=== PATIENT | male | born 1995 | race Hispanic/Latino ===

== ENCOUNTER 2019-01-27 12:58 | Emergency (ER) | payer SELFPAY ==
--- NOTE | 2019-01-27 14:55 | ER ---
Nurse's Notes [facility] Name: Bassam Sharma Age: 23 yrs Sex: Male : 1995 Arrival Date: 01/27/2019 Time: 13:02 Bed 13 Private MD: Diagnosis: Pain in throat Presentation: 01/27 13:30 Presenting complaint: Patient states: Sore throat x 1 year. Transition of care: patient jl7 was not received from another setting of care. Onset of symptoms was 2018. Risk Assessment: Do you want to hurt yourself or someone else? Patient reports no desire to harm self or others. Initial Sepsis Screen: Does the patient meet any 2 criteria? No. Patient's initial sepsis screen is negative. Does the patient have a suspected source of infection? No. Patient's initial sepsis screen is negative. Care prior to arrival: None. 13:30 Method Of Arrival: Ambulatory [facility] 13:30 Acuity: JENNIFER 4 jl7 Triage Assessment: 13:33 General: Appears in no apparent distress. comfortable, Behavior is calm, cooperative, jl7 appropriate for age. Pain: Denies pain. EENT: Throat is clear is pink. Neuro: Level of Consciousness is awake, alert, obeys commands, Oriented to person, place, time, situation. Cardiovascular: Heart tones present Patient's skin is warm and dry. Respiratory: Airway is patent Respiratory effort is even, unlabored, Respiratory pattern is regular, symmetrical, Breath sounds are clear bilaterally. GI: No signs and/or symptoms were reported involving the gastrointestinal system. : No signs and/or symptoms were reported regarding the genitourinary system. Derm: Skin is pink, warm \T\ dry. Musculoskeletal: No signs and/or symptoms reported regarding the musculoskeletal system. 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 - Social history:: Smoking status: Patient uses tobacco products, 3-4 smokes. - Ebola Screening: : No symptoms or risks identified at this time. Screenin:59 Abuse screen: Denies threats or abuse. Denies injuries from another. Nutritional jl7 screening: No deficits noted. Tuberculosis screening: No symptoms or risk factors identified. Fall Risk None identified. Assessment: 13:59 General: See triage assessment. jl7 14:30 Reassessment: Patient appears in no apparent distress at this time. No changes from jl7 previously documented assessment. Patient and/or family updated on plan of care and expected duration. Pain level reassessed. Patient is alert, oriented x 3, equal unlabored respirations, skin warm/dry/pink. 15:01 Reassessment: Patient appears in no apparent distress at this time. Patient and/or ch family updated on plan of care and expected duration. Pain level reassessed. Patient is alert, oriented x 3, equal unlabored respirations, skin warm/dry/pink. Respiratory: No deficits noted. Airway is patent Respiratory effort is even, unlabored. Vital Signs: 13:33 BP 136 / 84; Pulse 66; Resp 16 S; Temp 98(O); Pulse Ox 100% on R/A; Pain 0/10; jl7 14:30 BP 137 / 88; Pulse 59; Resp 16 S; Pulse Ox 100% on R/A; jl7 15:01 BP 144 / 89; Pulse 62; Resp 16; Temp 97.9; Pulse Ox 99% on R/A; Pain 0/10; ch ED Course: 13:02 Patient arrived in ED. rg4 13:13 Sofia Hutchins [facility]-C [facility]. kb 13:13 Unruly Jacob MD is Attending Physician. kb 13:22 Shagufta Nicolas, JENNIFER is Primary Nurse. jl7 13:31 Triage completed. jl7 13:33 Arm band placed on right wrist. jl7 13:59 Patient has correct armband on for positive identification. Bed in low position. Call [facility] light in reach. Side rails up X 1. Pulse ox on. NIBP on. 13:59 Strep swab sent to lab. 7 15:01 No provider procedures requiring assistance completed. Patient did not have IV access ch during this emergency room visit. Administered Medications: No medications were administered Outcome: 14:54 Discharge ordered by . kb 15:01 Discharged to home ambulatory, with family. 15:01 Condition: stable 15:01 Discharge instructions given to patient, family, Instructed on discharge instructions, follow up and referral plans. Demonstrated understanding of instructions, follow-up care. 15:03 Patient left the ED. ch Signatures: Sofia Hutchins, VALERY JARQUIN-Thelma Zelaya, RN RN Trisha Botello4 Shagufta Nicolas RN RN jl7
--- NOTE | 2019-01-27 14:55 | EDPHYS ---
Physician Documentation [facility] Name: Bassam Sharma Age: 23 yrs Sex: Male : 1995 Arrival Date: 01/27/2019 Time: 13:02 Bed 13 Private MD: ED Physician Unruly Jacob HPI: 01/27 14:27 This 23 yrs old Male presents to ER via Ambulatory with complaints of Sore kb Throat. 14:27 The patient presents with sore throat. The patient describes throat pain as constant. kb Onset: The symptoms/episode began/occurred 1 year(s) ago. Severity of symptoms: At their worst the symptoms were mild, moderate, in the emergency department the symptoms are unchanged. Modifying factors: The symptoms are alleviated by nothing, the symptoms are aggravated by swallowing, Patient's oral intake status: good Denies contact with similarly ill indivduals. Associated signs and symptoms: Pertinent positives: Sore throat Pertinent negatives fever. The patient has not experienced similar symptoms in the past. The patient has not recently seen a physician. Pt reports sore throat for a year. When it first started he was tested for strep and it was positive. Completed antibiotics and pain got better, but came back. 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 - Social history:: Smoking status: Patient uses tobacco products, 3-4 smokes. - Ebola Screening: : No symptoms or risks identified at this time. ROS: 14:26 Constitutional: Negative for fever, chills, and weight loss, Neck: Negative for injury, kb pain, and swelling, Cardiovascular: Negative for chest pain, palpitations, and edema, Respiratory: Negative for shortness of breath, cough, wheezing, and pleuritic chest pain, Abdomen/GI: Negative for abdominal pain, nausea, vomiting, diarrhea, and constipation, MS/Extremity: Negative for injury and deformity, Skin: Negative for injury, rash, and discoloration, Neuro: Negative for headache, weakness, numbness, tingling, and seizure. 14:26 ENT: Positive for sore throat. Exam: 14:26 Constitutional: This is a well developed, well nourished patient who is awake, alert, kb and in no acute distress. Head/Face: Normocephalic, atraumatic. Neck: Trachea midline, no thyromegaly or masses palpated, and no cervical lymphadenopathy. Supple, full range of motion without nuchal rigidity, or vertebral point tenderness. No Meningismus. Chest/axilla: Normal chest wall appearance and motion. Nontender with no deformity. No lesions are appreciated. Cardiovascular: Regular rate and rhythm with a normal S1 and S2. No gallops, murmurs, or rubs. Normal PMI, no JVD. No pulse deficits. Respiratory: Lungs have equal breath sounds bilaterally, clear to auscultation and percussion. No rales, rhonchi or wheezes noted. No increased work of breathing, no retractions or nasal flaring. Abdomen/GI: Soft, non-tender, with normal bowel sounds. No distension or tympany. No guarding or rebound. No evidence of tenderness throughout. Skin: Warm, dry with normal turgor. Normal color with no rashes, no lesions, and no evidence of cellulitis. MS/ Extremity: Pulses equal, no cyanosis. Neurovascular intact. Full, normal range of motion. Neuro: Awake and alert, GCS 15, oriented to person, place, time, and situation. Cranial nerves II-XII grossly intact. Motor strength 5/5 in all extremities. Sensory grossly intact. Cerebellar exam normal. Normal gait. 14:26 ENT: Posterior pharynx: erythema, that is moderate. Vital Signs: 13:33 BP 136 / 84; Pulse 66; Resp 16 S; Temp 98(O); Pulse Ox 100% on R/A; Pain 0/10; jl7 14:30 BP 137 / 88; Pulse 59; Resp 16 S; Pulse Ox 100% on R/A; jl7 15:01 BP 144 / 89; Pulse 62; Resp 16; Temp 97.9; Pulse Ox 99% on R/A; Pain 0/10; ch MDM: 13:22 Patient medically screened. kb 14:26 Data reviewed: vital signs, nurses notes. Data interpreted: Pulse oximetry: on room air kb is 100 %. Interpretation: normal. 14:54 Counseling: I had a detailed discussion with the patient and/or guardian regarding: the kb historical points, exam findings, and any diagnostic results supporting the discharge/admit diagnosis, lab results, the need for outpatient follow up, a family practitioner, to return to the emergency department if symptoms worsen or persist or if there are any questions or concerns that arise at home. 01/27 13:50 Order name: Strep; Complete Time: 14:53 kb 01/27 14:55 Order name: Throat Culture EDMS Administered Medications: No medications were administered Disposition: 16:21 Co-signature as Attending Physician, Unruly Jacob MD I agree with the assessment and kdr plan of care. Disposition: 01/27/19 14:54 Discharged to Home. Impression: Pain in throat. - Condition is Stable. - Discharge Instructions: Sore Throat, [id number]. - Medication Reconciliation Form, Thank You Letter, Antibiotic Education, Prescription Opioid Use, Work release form form. - Follow up: Emergency Department; When: As needed; Reason: Worsening of condition. Follow up: Private Physician; When: 2 - 3 days; Reason: Recheck today's complaints, Continuance of care, Re-evaluation by your physician. Signatures: Dispatcher [employer] EDMS Sofia Hutchins, MILKA-Kylee BED AND BREAKFAST INNKEEPER-Thelma Zelaya, RN RN Unruly Jacob MD MD [facility] Shagufta Nicolas RN RN jl7 Corrections: (The following items were deleted from the chart) 15:03 14:54 01/27/2019 14:54 Discharged to Home. Impression: Pain in throat. Condition is ch Stable. Forms are Medication Reconciliation Form, Thank You Letter, Antibiotic Education, Prescription Opioid Use. Follow up: Emergency Department; When: As needed; Reason: Worsening of condition. Follow up: Private Physician; When: 2 - 3 days; Reason: Recheck today's complaints, Continuance of care, Re-evaluation by your physician. kb
[2019-01-27 15:22] VITALS: BP 144/89; TEMP 97.9; O2SAT 99
== END 2019-01-27 15:03 | disposition home or self-care (01) ==
LOC: ER 12:58
DX: J02.9 Acute pharyngitis, unspecified (principal)
CPT/HCPCS: 87070; 87081; 99283

== ENCOUNTER 2020-11-15 10:39 | Emergency (ER) | payer SELFPAY ==
--- OUTSIDE RECORDS SUMMARY | 2020-11-15 10:41 | XMS REPORT | Continuity of Care Document ---
:1995 Author Organization [facility] t Address [address] [place] [address] Care Team Providers Name Role Phone Su Mora Attending Clinician Doctor Unassigned, Name Attending Clinician Unavailable Problems This patient has no known problems. Allergies, Adverse Reactions, Alerts This patient has no known allergies or adverse reactions. Medications This patient has no known medications. Procedures This patient has no known procedures. Encounters Start End Encounter Admission Attending Care Care Encounter Source Date/Time Date/Time Type Type Clinicians Facility Department ID 2019-05-28 2019-05-28 Emergency Marielena Giordano [facility] [id number] 16:54:20 18:00:00 Sufernando Telles [id number] [place] [id number] [place] [id number] 2019-05-28 2019-05-28 Orders Doctor ESPINOZA [id number] 00:00:00 00:00:00 Only UnassPAWEL guzman [id number] Francis [facility] [id number] Results This patient has no known results.
[2020-11-15 11:18] LABS: Absolute Lymphocytes (CBC) 2.1 K/uL (0.7-4.9); Basophils % 1.3 % (0-1.3); Hematocrit 43.6 % (39.6-49.0); Lymphocytes % 20.1 % (15.3-44.8); MPV 10.4 fL (7.6-11.3); RBC Red Blood Cell Count 4.83 M/uL (4.33-5.43)
[2020-11-15 11:28] LABS: Protime INR 0.97
[2020-11-15 11:38] LABS: ALT/SGPT 25 U/L (12-78); AST/SGOT 17 U/L (15-37); Albumin 4.1 g/dL (3.4-5.0); Alkaline Phosphatase 130 U/L (45-117); BUN Blood Urea Nitrogen 15 mg/dL (7-18); Bicarbonate 27 mmol/L (21-32); Bilirubin Direct 0.1 mg/dL (0-0.2); Bilirubin Total 0.3 mg/dL (0.2-1.0); Glucose Level 128 mg/dL (74-106); NT PRO-BNP 262 pg/mL (<125); Potassium 3.9 mmol/L (3.5-5.1); Protein, Total 7.7 g/dL (6.4-8.2); Sodium Level 140 mmol/L (136-145); Troponin (Emerg Dept Use Only) < 0.02 ng/mL (0.0-0.045)
--- NOTE | 2020-11-15 11:38 | RAD REPORT ---
EXAM DESCRIPTION: RAD - Chest Single View - 11/15/2020 11:32 am CLINICAL HISTORY: CHEST PAIN COMPARISON: No comparisons FINDINGS: No evidence of edema or pneumonia. The heart size is within normal limits.No acute osseous abnormality. No significant pleural effusions or pneumothorax. IMPRESSION: No acute cardiopulmonary disease.
[2020-11-15] MEDS ORDERED: ONDANSETRON 4 MG/2 ML VIAL ONE ×3 (11:40→18:43)
[2020-11-15] MEDS ORDERED: HYDRALAZINE HCL 20 MG/ML VIAL ONE (11:46)
[2020-11-15] MEDS ORDERED: MORPHINE 4 MG/ML SYR ONE ×3 (11:46→18:43)
[2020-11-15] MEDS ORDERED: DIAZEPAM 10 MG/2 ML INJ SYRINGE ONE (14:40)
--- NOTE | 2020-11-15 16:01 | RAD REPORT ---
EXAM DESCRIPTION: CT - Thorax Wo Chema - 11/15/2020 3:39 pm CLINICAL HISTORY: Chest pain COMPARISON: None. TECHNIQUE: Axial 5 mm thick images of the chest were obtained without IV contrast. All CT scans are performed using dose optimization technique as appropriate and may include automated exposure control or mA/KV adjustment according to patient size. FINDINGS: No mass or infiltrate in the lung parenchyma. No pleural thickening or pleural effusion. N o pneumothorax. No abnormal mediastinal or hilar masses or lymphadenopathy seen. No significant aortic or pulmonary a rtery finding suspected. Assessment is limited in the absence of IV contrast. No chest wall mass or abnormal axillary lymphadenopathy. Fluid is present within the upper abdomen. There is possible hemorrhage in the left upper quadrant bu t this is not well assessed. There is heterogeneity within the spleen. IMPRESSION: 1. No acute findings within the chest. 2. Possible hemoperitoneum/splenic injury. Recommend contrast-enhanced CT of the abdomen and pelvis f or further evaluation. Discussed with Taylor Hahn by Dr. Armando at 1553 on 11/15/20
[2020-11-15] MEDS ORDERED: ACETYLCYST 6,000 MG/30 ML VIAL ONE (16:42)
[2020-11-15] MEDS ORDERED: NA CHLORIDE 0.9% 500 ML ONE (16:42)
--- NOTE | 2020-11-15 17:23 | RAD REPORT ---
EXAM DESCRIPTION: CTAbdomen Pelvis W Contrast - 11/15/2020 5:08 pm CLINICAL HISTORY: Abdominal pain. ABD PAIN COMPARISON: No comparisons TECHNIQUE: Biphasic CT imaging of the abdomen and pelvis was performed with 100 ml non-ionic IV cont rast. All CT scans are performed using dose optimization technique as appropriate and may include automated exposure control or mA/KV adjustment according to patient size. FINDINGS: The lung bases are clear. Large volume of hemoperitoneum. There is active extravasation of contrast in the left upper quadrant though the exact vessel is unclear. This may be secondary to a gastroepiploic artery or splenic arter y injury/aneurysm rupture based on the location. Renal cysts noted. The liver is unremarkable. Gallbl adder is unremarkable. No retroperitoneal lymphadenopathy. Prostate unremarkable. The bladder is unre markable. No acute fractures seen. No retroperitoneal lymphadenopathy. No aortic aneurysm. No suspicious bony findings. IMPRESSION: Active arterial bleeding in the left upper quadrant. The source is unclear. This may be secondary to a visceral artery aneurysm rupture in the absence of significant trauma history.
[2020-11-15 17:51] LABS: Hematocrit 34.8 % (39.6-49.0)
--- NOTE | 2020-11-15 19:36 | ER ---
Nurse's Notes [facility] Name: Bassam Sharma Age: 25 yrs Sex: Male : 1995 Arrival Date: 11/15/2020 Time: 10:42 Bed 28 Private MD: Diagnosis: Hemoperitoneum;Unspecified intraabdominal arterial bleed left upper quadrant Presentation: 11/15 10:45 Chief complaint: Patient states: he woke up having "left lung pain". Coronavirus ap3 screen: Client presents with at least one sign or symptom that may indicate coronavirus-19. Standard/surgical mask placed on the client. Ebola Screen: No symptoms or risks identified at this time. Initial Sepsis Screen: Does the patient meet any 2 criteria?. Risk Assessment: Do you want to hurt yourself or someone else? Patient reports no desire to harm self or others. Onset of symptoms was November 15, 2020. 10:45 Method Of Arrival: Ambulatory ap3 10:47 Initial Sepsis Screen: Does the patient meet any 2 criteria? No. Patient's initial ap3 sepsis screen is negative. Does the patient have a suspected source of infection? No. Patient's initial sepsis screen is negative. 10:47 Acuity: JENNIFER 2 ap3 Triage Assessment: 10:50 General: Appears distressed, uncomfortable, Behavior is cooperative, anxious, restless. ap3 Pain: Complains of pain in left lateral anterior chest Pain began suddenly, this morning. EENT: No deficits noted. Neuro: Level of Consciousness is awake, alert, obeys commands, Oriented to person, place, time, situation, Appropriate for age. Cardiovascular: Capillary refill < 3 seconds Patient's skin is warm and dry. Respiratory: Reports pain with movement pain with respiration. GI: Pt is actively vomiting clear fluid, Reports nausea, vomiting. : No signs and/or symptoms were reported regarding the genitourinary system. Derm: visible stretch bearden on patients chest and back. 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 - Social history:: Smoking status: Patient reports the use of cigarette tobacco products, 2 cigarettes per day. Screenin:47 Abuse screen: Denies threats or abuse. Nutritional screening: No deficits noted. ap3 Tuberculosis screening: No symptoms or risk factors identified. Fall Risk No fall in past 12 months (0 pts). No secondary diagnosis (0 pts). IV access (20 points). Ambulatory Aid- None/Bed Rest/Nurse Assist (0 pts). Gait- Weak (10 pts.). Mental Status- Oriented to own ability (0 pts). Total Gerard Fall Scale indicates Low Risk Score (25-44 pts). Fall prevention measures have been instituted. Side Rails Up X 2 Placed close to Nursing Station Frequent Obs/Assesments occuring As available Patient and Family Educated on Fall Prevention Program and strategies. Assessment: 11:00 Pain: Pain does not radiate. ap3 12:14 Reassessment: Patient and/or family updated on plan of care and expected duration. Pain ap3 level reassessed. Patient is alert, oriented x 3, equal unlabored respirations, skin warm/dry/pink. family is at the bedside. 13:30 General: Appears uncomfortable, Diaphoretic . Pain: Complains of pain in Left flank, kg abdomen Pain currently is 10 out of 10 on a pain scale. at worst was 10 out of 10 on a pain scale. level that patient reports is acceptable is 5 out of 10 on a pain scale. Quality of pain is described as sharp, stabbing, squeezing, Pain began 2-3 days ago. Is intermittent, episodic. Neuro: No deficits noted. Neuro: Level of Consciousness is awake, alert, obeys commands, Oriented to person, place, time, situation, Appropriate for age. Cardiovascular: Reports chest pain, diaphoresis, nausea, vomiting, Heart tones S1 S2 Capillary refill < 3 seconds. Respiratory: Reports pain with cough pain with movement since 11/13/20 Airway is patent Respiratory effort is even, unlabored, relaxed, Respiratory pattern is regular, Breath sounds are diminished bilaterally. GI: Bowel sounds present X 4 quads. Abdomen is tender to palpation in left upper quadrant and left lower quadrant Reports lower abdominal pain, upper abdominal pain, nausea, vomiting. : No deficits noted. EENT: No deficits noted. Derm: No deficits noted. Musculoskeletal: No deficits noted. 17:28 Reassessment: Pt significant other went home. Patience . kg 20:11 Reassessment: Report given to charge nurse at [facility]. . kg 20:12 Reassessment: Report given to Aneesh RODRIGUEZconcrete craftsman nurse. kg Vital Signs: 10:47 BP 196 / 130 LA Sitting (auto/reg); Pulse 59; Resp 20; Temp 97.8; Pulse Ox 100% ; ap3 Weight 58.97 kg; Height 5 ft. 8 in. (172.72 cm); 12:00 BP 155 / 113; Pulse 105; Resp 18; Pulse Ox 100% on R/A; ap3 12:26 BP 156 / 104; ap3 13:30 BP 142 / 100; Pulse 81; Resp 18; Pulse Ox 98% ; kg 14:00 BP 128 / 76; Pulse 79; Resp 18; Pulse Ox 100% on R/A; kg 14:45 BP 147 / 108; Pulse 81; Resp 20; Pulse Ox 100% ; kg 15:00 BP 144 / 102; Pulse 85; Resp 20; Pulse Ox 99% on R/A; kg 15:15 BP 150 / 109; Pulse 75; Resp 20; Pulse Ox 100% ; kg 16:30 BP 164 / 109; Pulse 85; Resp 20; Pulse Ox 100% ; kg 17:30 BP 159 / 95; Pulse 87; Resp 20; Pulse Ox 99% on R/A; kg 17:45 BP 148 / 104; Pulse 92; Resp 20; Pulse Ox 99% ; kg 18:00 BP 148 / 106; Pulse 96; Resp 20; Pulse Ox 100% ; kg 18:15 BP 150 / 99; Pulse 63; Resp 20; Pulse Ox 100% ; kg 18:30 BP 147 / 105; Pulse 98; Resp 20; Pulse Ox 99% ; kg 19:30 BP 145 / 96; Pulse 85; Resp 20; Pulse Ox 99% ; kg 19:45 BP 112 / 96; Pulse 85; Resp 20; Pulse Ox 100% ; kg 20:00 BP 132 / 96; Pulse 90; Resp 20; Pulse Ox 99% ; kg 10:47 Body Mass Index 19.77 (58.97 kg, 172.72 cm) ap3 ED Course: 10:42 Patient arrived in ED. ss 10:45 Sully Morales, RN is Primary Nurse. ap3 10:50 Triage completed. ap3 10:51 Ryan Hahn PA is PHCP. jr8 10:51 Al Raymond MD is Attending Physician. jr8 10:53 Arm band placed on right wrist. ap3 10:53 Patient has correct armband on for positive identification. Placed in gown. Bed in low ap3 position. Call light in reach. Side rails up X2. web services architect on. Pulse ox on. NIBP on. Door closed. Noise minimized. 10:53 Patient maintains SpO2 saturation greater than 95% on room air. ap3 11:02 Basic Metabolic Panel Sent. mh5 11:02 CBC with Diff Sent. 5 11:02 LFT's Sent. [facility] 11:02 Magnesium Sent. [facility] 11:02 NT PRO-BNP Sent. [facility] 11:02 PT-INR Sent. [facility] 11:02 Troponin (emerg Dept Use Only) Sent. [facility] 11:02 Initial lab(s) drawn, by pr, sent to lab. EKG done, by ED staff, reviewed by Al Raymond MD. Inserted saline lock: 20 gauge in right antecubital area, using aseptic technique. Blood collected. 11:32 XRAY Chest (1 view) In Process Unspecified. EDMS 15:39 CT Chest Wo Con In Process Unspecified. EDMS 17:08 CT Abd/Pelvis - IV Contrast Only In Process Unspecified. EDMS 17:28 Inserted saline lock: 18 gauge in left antecubital area, using aseptic technique. kg 18:25 initiated transfer to [facility] pt denied due to no icu beds, per Lea and bd the [facility] stoner hand. 18:28 initiated transfer to [facility], pt denied due to no beds at [facility] or [facility]. bd 18:30 Inserted saline lock: 20 gauge. kg 18:30 IV discontinued, 20 R AC Accidently removed by patient. kg 18:54 re initiated transfer to [facility]. bd 19:11 Primary Nurse role handed off by Sully Morales, JENNIFER ss 19:22 connected Ryan Hahn with the Doctor from [facility]. [facility] 19:28 administrative approval given by Gavi Heredia/ patient has been accepted to [address] ER/ Dr. Hill accepted the patient in transfer/ report to be called to [phone]. 19:30 Kina Mart, JENNIFER is Primary Nurse. kg 20:18 No provider procedures requiring assistance completed. kg Administered Medications: 11:21 Drug: Zofran (Ondansetron) 4 mg Route: IVP; Site: right antecubital; ap3 12:15 Follow up: Response: No adverse reaction; Nausea is decreased ap3 11:28 Drug: morphine 4 mg {Note: RASS 0-PATIENT ALERT, AWAKE.} Route: IVP; Site: right ap3 antecubital; 12:15 Follow up: Response: No adverse reaction; Pain is decreased; RASS: Alert and Calm (0) ap3 11:28 Drug: hydrALAZINE 10 mg Route: IVP; Site: right antecubital; ap3 12:15 Follow up: Response: No adverse reaction; Blood pressure is lowered ap3 13:41 Drug: Zofran (Ondansetron) 4 mg Route: IVP; Site: right antecubital; kg 15:29 Follow up: Response: No adverse reaction kg 14:15 Drug: Valium (diazepam) 5 mg Route: IVP; Site: right antecubital; kg 15:29 Follow up: Response: No adverse reaction kg 16:04 Drug: NS 0.9% 500 ml Route: IV; Rate: bolus; Site: right antecubital; kg 16:50 Follow up: Response: No adverse reaction; IV Status: Completed infusion kg 16:04 Drug: Mucomyst - Acetylcysteine 600 mg Route: PO; kg 16:55 Drug: morphine 4 mg Route: IVP; Site: right antecubital; kg 20:29 Follow up: Response: No adverse reaction kg 19:55 Drug: Phenergan (promethazine) 12.5 mg Route: IVP; Site: left antecubital; kg 20:21 Follow up: Response: No adverse reaction kg 20:21 Not Given (Given by Aneesh RODRIGUEZflight surveyor nursee): Cardene (niCARdipine) 5 mg IV at mg/hr kg continuous; 5mg/hr Outcome: 19:35 ER care complete, transfer ordered by MD. engel 20:19 Transferred by helicopter to [facility], Transfer form completed. kg 20:19 Condition: unchanged 20:19 Instructed on the need for transfer. 20:29 Patient left the ED. kg Signatures: Dispatcher [employer] EDMS Kaitlin Richard Shelby, RN RN Ryan Hahn PA PA [facility] Tiffany Petty [facility] Sully Morales RN RN ap3 Jason Ariza 2 Kina Mart RN RN kg Corrections: (The following items were deleted from the chart) 10:47 10:46 PMHx: Good Pasture; ap3 ap3
--- NOTE | 2020-11-15 19:36 | EDPHYS ---
Physician Documentation [facility] Name: Bassam Sharma Age: 25 yrs Sex: Male : 1995 Arrival Date: 11/15/2020 Time: 10:42 Bed 28 Private MD: JEANNE Physician Al Raymond HPI: 11/15 12:43 This 25 yrs old Male presents to ER via Ambulatory with complaints of Chest jr8 Wall Pain. 13:17 The pain does not radiate. Associated signs and symptoms: The patient has no apparent jr8 associated signs or symptoms. The chest pain is described as sharp. Duration: The patient or guardian reports a single episode, that is still ongoing. Modifying factors: The symptoms are alleviated by nothing. the symptoms are aggravated by deep breath. Severity of pain: At its worst the pain was moderate in the emergency department the pain is unchanged. The patient has not experienced similar symptoms in the past. This is a 25-year-old male that presented to the emergency room with sudden onset left lower lateral rib pain that was worse with inspiration that started this morning. Denies trauma. Could not get the pain to go away so came to the emergency room for further evaluation.. 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 - Social history:: Smoking status: Patient reports the use of cigarette tobacco products, 2 cigarettes per day. ROS: 13:17 Eyes: Negative for injury, pain, redness, and discharge, ENT: Negative for injury, jr8 pain, and discharge, Neck: Negative for injury, pain, and swelling, Respiratory: Negative for shortness of breath, cough, wheezing, and pleuritic chest pain, Abdomen/GI: Negative for abdominal pain, nausea, vomiting, diarrhea, and constipation, Back: Negative for injury and pain, MS/Extremity: Negative for injury and deformity, Skin: Negative for injury, rash, and discoloration, Neuro: Negative for headache, weakness, numbness, tingling, and seizure. 13:17 Cardiovascular: Positive for chest pain, Negative for edema, orthopnea, palpitations, paroxysmal nocturnal dyspnea. Exam: 13:17 Constitutional: This is a well developed, well nourished patient who is awake, alert, jr8 and in no acute distress. Neck: Trachea midline, no thyromegaly or masses palpated, and no cervical lymphadenopathy. Supple, full range of motion without nuchal rigidity, or vertebral point tenderness. No Meningismus. Chest/axilla: Normal chest wall appearance and motion. Nontender with no deformity. No lesions are appreciated. Cardiovascular: Regular rate and rhythm with a normal S1 and S2. No gallops, murmurs, or rubs. Normal PMI, no JVD. No pulse deficits. Respiratory: Lungs have equal breath sounds bilaterally, clear to auscultation and percussion. No rales, rhonchi or wheezes noted. No increased work of breathing, no retractions or nasal flaring. Abdomen/GI: Soft, non-tender, with normal bowel sounds. No distension or tympany. No guarding or rebound. No evidence of tenderness throughout. Back: No spinal tenderness. No costovertebral tenderness. Full range of motion. Skin: Warm, dry with normal turgor. Normal color with no rashes, no lesions, and no evidence of cellulitis. MS/ Extremity: Pulses equal, no cyanosis. Neurovascular intact. Full, normal range of motion. Neuro: Awake and alert, GCS 15, oriented to person, place, time, and situation. Cranial nerves II-XII grossly intact. Motor strength 5/5 in all extremities. Sensory grossly intact. Cerebellar exam normal. Normal gait. Vital Signs: 10:47 BP 196 / 130 LA Sitting (auto/reg); Pulse 59; Resp 20; Temp 97.8; Pulse Ox 100% ; ap3 Weight 58.97 kg; Height 5 ft. 8 in. (172.72 cm); 12:00 BP 155 / 113; Pulse 105; Resp 18; Pulse Ox 100% on R/A; ap3 12:26 BP 156 / 104; ap3 13:30 BP 142 / 100; Pulse 81; Resp 18; Pulse Ox 98% ; kg 14:00 BP 128 / 76; Pulse 79; Resp 18; Pulse Ox 100% on R/A; kg 14:45 BP 147 / 108; Pulse 81; Resp 20; Pulse Ox 100% ; kg 15:00 BP 144 / 102; Pulse 85; Resp 20; Pulse Ox 99% on R/A; kg 15:15 BP 150 / 109; Pulse 75; Resp 20; Pulse Ox 100% ; kg 16:30 BP 164 / 109; Pulse 85; Resp 20; Pulse Ox 100% ; kg 17:30 BP 159 / 95; Pulse 87; Resp 20; Pulse Ox 99% on R/A; kg 17:45 BP 148 / 104; Pulse 92; Resp 20; Pulse Ox 99% ; kg 18:00 BP 148 / 106; Pulse 96; Resp 20; Pulse Ox 100% ; kg 18:15 BP 150 / 99; Pulse 63; Resp 20; Pulse Ox 100% ; kg 18:30 BP 147 / 105; Pulse 98; Resp 20; Pulse Ox 99% ; kg 19:30 BP 145 / 96; Pulse 85; Resp 20; Pulse Ox 99% ; kg 19:45 BP 112 / 96; Pulse 85; Resp 20; Pulse Ox 100% ; kg 20:00 BP 132 / 96; Pulse 90; Resp 20; Pulse Ox 99% ; kg 10:47 Body Mass Index 19.77 (58.97 kg, 172.72 cm) ap3 MDM: 10:51 Patient medically screened. jr8 13:17 Data reviewed: vital signs, nurses notes, lab test result(s), EKG, radiologic studies, jr8 plain films. Data interpreted: Pulse oximetry: on room air is 100 %. Interpretation: normal. Counseling: I had a detailed discussion with the patient and/or guardian regarding: the historical points, exam findings, and any diagnostic results supporting the discharge/admit diagnosis, lab results, radiology results, the need for outpatient follow up, a family practitioner, to return to the emergency department if symptoms worsen or persist or if there are any questions or concerns that arise at home. 19:32 ED course: Tried several places for acute transfer of patient due to active arterial jr8 bleed in the abdomen. Sites included [facility], [place], [facility], [facility], [facility]. Was finally able to get patient into [facility] for emergent transfer.. 11/15 10:51 Order name: Basic Metabolic Panel; Complete Time: 12:08 jr8 11/15 10:51 Order name: CBC with Diff; Complete Time: 11:22 jr8 11/15 10:51 Order name: LFT's; Complete Time: 12:08 11/15 10:51 Order name: Magnesium; Complete Time: 12:08 11/15 10:51 Order name: NT PRO-BNP; Complete Time: 12:08 11/15 10:51 Order name: PT-INR; Complete Time: 12:08 11/15 10:51 Order name: Troponin (emerg Dept Use Only); Complete Time: 12:08 11/15 16:45 Order name: COVID-19 : Document "Date of Symptom Onset" if Symptomatic. kg 11/15 17:26 Order name: Type And Screen; Complete Time: 19:22 kg 11/15 17:26 Order name: Hemoglobin; Complete Time: 18:14 kg 11/15 17:26 Order name: Hematocrit; Complete Time: 18:14 kg 11/15 17:51 Order name: SARS-COV-2 RT PCR; Complete Time: 18:14 EDMS 11/15 10:51 Order name: XRAY Chest (1 view); Complete Time: 12:08 11/15 10:51 Order name: EKG; Complete Time: 10:52 11/15 15:15 Order name: CT Chest Wo Con; Complete Time: 16:24 11/15 15:53 Order name: CT Abd/Pelvis - IV Contrast Only; Complete Time: 17:34 11/15 19:05 Order name: ABO/RH no charge; Complete Time: 19:22 EDMS 11/15 10:51 Order name: Cardiac monitoring; Complete Time: 10:53 11/15 10:51 Order name: EKG - Nurse/Tech; Complete Time: 11:02 11/15 10:51 Order name: IV Saline Lock; Complete Time: 11:00 11/15 10:51 Order name: Labs collected and sent; Complete Time: 11:00 11/15 10:51 Order name: O2 Per Protocol; Complete Time: 10:53 11/15 10:51 Order name: O2 Sat Monitoring; Complete Time: 10:53 Administered Medications: 11:21 Drug: Zofran (Ondansetron) 4 mg Route: IVP; Site: right antecubital; ap3 12:15 Follow up: Response: No adverse reaction; Nausea is decreased ap3 11:28 Drug: morphine 4 mg {Note: RASS 0-PATIENT ALERT, AWAKE.} Route: IVP; Site: right ap3 antecubital; 12:15 Follow up: Response: No adverse reaction; Pain is decreased; RASS: Alert and Calm (0) ap3 11:28 Drug: hydrALAZINE 10 mg Route: IVP; Site: right antecubital; ap3 12:15 Follow up: Response: No adverse reaction; Blood pressure is lowered ap3 13:41 Drug: Zofran (Ondansetron) 4 mg Route: IVP; Site: right antecubital; kg 15:29 Follow up: Response: No adverse reaction kg 14:15 Drug: Valium (diazepam) 5 mg Route: IVP; Site: right antecubital; kg 15:29 Follow up: Response: No adverse reaction kg 16:04 Drug: NS 0.9% 500 ml Route: IV; Rate: bolus; Site: right antecubital; kg 16:50 Follow up: Response: No adverse reaction; IV Status: Completed infusion kg 16:04 Drug: Mucomyst - Acetylcysteine 600 mg Route: PO; kg 16:55 Drug: morphine 4 mg Route: IVP; Site: right antecubital; kg 20:29 Follow up: Response: No adverse reaction kg 19:55 Drug: Phenergan (promethazine) 12.5 mg Route: IVP; Site: left antecubital; kg 20:21 Follow up: Response: No adverse reaction kg 20:21 Not Given (Given by Aneesh RODRIGUEZflight director nursee): Cardene (niCARdipine) 5 mg IV at mg/hr kg continuous; 5mg/hr Disposition: 11/16 07:29 Co-signature as Attending Physician, Al Raymond MD I agree with the assessment and roselyn plan of care. Disposition Summary: 11/15/20 19:35 Transfer Ordered Transfer Location: [facility] jr8 Reason: Higher level of care jr8 Condition: Fair jr8 Problem: new jr8 Symptoms: are unchanged jr8 Accepting Physician: Dr. Hill(11/15/20 20:29) kg Diagnosis - Hemoperitoneum jr8 - Unspecified intraabdominal arterial bleed left upper quadrant jr8 Forms: - Medication Reconciliation Form jr8 - SBAR form jr8 Signatures: Dispatcher [employer] EDMS Al Raymond MD MD cha Roszak, Josh, PA PA jr8 Sully Morales RN RN ap3 Kina Mart RN RN kg Corrections: (The following items were deleted from the chart) 11/15 10:47 10:46 PMHx: [place]; ap3 ap3 14:08 13:43 Chest For PE Angio+CT.RAD.BRZ ordered. EDMS EDMS 16:45 16:35 CORONAVIRUS+MR.LAB.BRZ ordered. EDMS EDMS 20:12 13:22 D-DIMER+COAG.LAB.BRZ ordered. EDMS EDMS 20:29 19:35 Dr. Hill jr8 kg
[2020-11-15] MEDS ORDERED: NA CHLORIDE 0.9% 100 ML ONE (20:10)
[2020-11-15] MEDS ORDERED: dilTIAZem HCL 25 MG/5 ML VIAL IV ONE (20:10)
[2020-11-15] MEDS ORDERED: PROMETHAZINE INJ 25 MG/ML AMP ONE (20:10)
[2020-11-15] MEDS ORDERED: Nicardipine/NS 25 MG/250 ML KIT IV ONE (20:22)
[2020-11-15 22:28] VITALS: TEMP 97.8
[2020-11-15 22:58] VITALS: BP 132/96; O2SAT 99
== END 2020-11-15 20:29 | disposition short-term general hospital (02) ==
LOC: ER 10:39
DX: K66.1 Hemoperitoneum (principal); I10 Essential (primary) hypertension; F17.210 Nicotine dependence, cigarettes, uncomplicated; Z88.8 Allergy status to other drugs, medicaments and biological substances; Z20.822 Contact with and (suspected) exposure to COVID-19
CPT/HCPCS: 36415; 71045; 71250; 74177; 80048; 80076; 83735; 83880; 84484; 85014; 85018; 85025; 85610; 86850; 86900; 86901; 93005; 99285; J0360; J2405; J2550; J3360; J7040; Q9967; U0003

== ENCOUNTER 2021-05-06 20:08 | Emergency (ER) | payer OTHER, SELFPAY ==
--- OUTSIDE RECORDS SUMMARY | 2021-05-06 20:11 | XMS REPORT | Continuity of Care Document ---
:1995 Author Organization [facility] t Address [address] [place] [address] Care Team Providers Name Role Phone Pcp, Does Not Have A Primary Care Physician Doctor Unassigned, Name Attending Clinician Unavailable GIORGIO BEVERLY Attending Clinician Unavailable ISAIAH ROSAS Attending Clinician Unavailable Su Mora Attending Clinician BRYAN NGUYEN Admitting Clinician Unavailable Payers Payer Name Policy Type Policy Effective Date Expiration Date Sour ce Number MEDICAID OUT OF [id number] 2018 [facility] 00:00:00 [facility] [id number]/ [facility] 04/2018-PresentMedic aid Problems This patient has no known problems. Allergies, Adverse Reactions, Alerts Allergy Allergy Status Severity Reaction(s) Onset Inactive Treating Comm ents Source Name Type Date Date Clinician METHYLPR Allergy Active High Anaphylaxis [facility] 8-04 [facility] [place] 00:00: [address] Solu-Med Propensi Active Swelling Univ ers rol ty to 4-15 ity of Mix-O-Vi adverse 00:00: [place] al reaction 00 Medical s Branch NO KNOWN Allergy Active [facility] Social History Social Habit Start Date Stop Date Quantity Comments Source Sex Assigned At [birth year] [facility] 00:00:00 00:00:00 Medical Branch Smoking Status Start Date Stop Date Source Unknown if ever smoked [facility] Medications Ordered Filled Start Stop Current Ordering Indication Dosage Frequency Signature Comments Components Source Medication Medication Date Date Medication? Clinician (SIG) Name Name No known No [facility] medications [facility] Vital Signs Vital Name Observation Time Observation Value Comments Source HEIGHT 2020-11-20 10:34:00 172.7 cm WEIGHT 2020-11-20 10:34:00 63.504 kg HEIGHT 2020-11-20 10:34:00 172.7 cm WEIGHT 2020-11-20 10:34:00 63.504 kg HEIGHT 2020-11-17 09:00:00 172.7 cm HEIGHT 2020-11-17 09:00:00 172.7 cm Procedures Procedure Date / Time Performed Performing Clinician Sourc e EXTERNAL PROVIDER - 2020-11-28 05:01:00 Doctor Unassigned, No Un [facility] REFERRAL Name [facility] Encounters Start End Encounter Admission Attending Care Care Encounter Source Date/Time Date/Time Type Type Clinicians Facility Department ID 2020-11-28 2020-11-28 Orders Doctor DORAN [id number] [facility] 00:00:00 00:00:00 Only UnassignedPAWEL 350.1.13.[address] [facility] [id number] [facility] as [id number] [address] 2020-11-20 2020-11-20 Outpatient [place] BC [id number] [facility] 00:00:00 23:59:00 Alvaro Medicin brant 2020-11-20 2020-11-20 Emergency ER [facility] Emergency [id number] [facility] 10:22:00 10:22:00 2020-11-15 2020-11-15 Emergency ER [facility] Emergency [id number] [facility] 20:42:00 20:42:00 2019-05-28 2019-05-28 Emergency Marielena Giordano MSCAL [id number] 16:54:20 18:00:00 [place] 350.1.13.10 [place] 4.2.7.2.686 [place] [id number] 2019-05-28 2019-05-28 Orders Doctor DORAN [id number] 00:00:00 00:00:00 [address] [facility] [address]686 [id number] Results Test Description Test Time Test Comments Results Result Sourc e Comments ANG, VISCERAL W 2020-11-22 Reason for 10:03:00 exam:->bleeding mesenteric [facility] CENTERName: ARIAS SCHWARTZ : 1995 Sex: M FINAL REPORT PROCEDURE: Mesenteric and left renal angiography Procedural PersonnelAttending physician(s): Genesis Tate physician(s): NoneResident physician(s): NoneAdvanced practice provider(s): None Pre-procedure diagnosis: Hemoperitoneum, spontaneous intraabdominal hemorrhagePost-procedur e diagnosis: SameIndication: Spontaneous intraabdominal arterial hemorrhageAdditional clinical history: Spontaneous intraabdominal hemorrhage with positive brisk arterial contrast extravasation on outside hospital CTA. Complications: No immediate complications. IMPRESSION: Angiography of the celiac artery, splenic artery, hepatic artery, SMA, left renal artery, and inferior phrenic artery demonstrates patent vessels of normal caliber without stenosis, aneurysm, dissection, or free extravasation of contrast. No embolization was performed. Plan: Right leg straight strict bed rest x 4 hours as ordered.Trend H\T\H and to ICU for hemodynamic monitoring. PROCEDURE SUMMARY:- Arterial access with ultrasound guidance- Selective mesenteric angiography: Celiac angiography, left renal artery, right inferior phrenic artery.- Superselective mesenteric angiography: Splenic, hepatic arteries.- Additional procedure(s): None PROCEDURE DETAILS: Pre-procedureConsent: Informed consent for the procedure including risks, benefits and alternatives was obtained and time-out was performed prior to the procedure.Preparation: The site was prepared and draped using maximal sterile barrier technique including cutaneous antisepsis. Anesthesia/sedationLeve l of anesthesia/sedation: No sedation (IV fentanyl for pain and 1% lidocaine)Anesthesia/se dation administered by: Independent trained observer under attending supervision with continuous monitoring of the patient\X2019\s level of consciousness and physiologic statusTotal intra-service sedation time (minutes): NA AccessLocal anesthesia was administered. The vessel was sonographically evaluated and judged to be patent. Real time ultrasound was used to visualize needle entry into the vessel and a permanent image was stored. A 5Fr sheath was placed.Vessel accessed: Right common femoral arteryAccess technique: Micropuncture set with 21 gauge needle Mesenteric angiographyThe mesenteric arterial system was catheterized using 5Fr catheter and 2.8Fr microcatheter. Variant anatomy: None Vessel catheterized: Celiac arteryFindings: Patent with normal caliber without aneurysm, dissection, or extravasation. Vessel catheterized: Superior mesenteric arteryFindings: Patent with normal caliber without aneurysm, dissection, or extravasation. Vessel catheterized: Splenic arteryFindings: Patent with normal caliber without aneurysm, dissection, or extravasation. Vessel catheterized: Common hepatic arteryFindings: Patent with normal caliber without aneurysm, dissection, or extravasation. Vessel catheterized: Right inferior phrenic artery.Findings: Patent with normal caliber without aneurysm, dissection, or extravasation. ClosureAccess site angiography performed: YesFindings: Patent vessel with appropriate access levelArterial closure technique: MynxHemostasis achieved from closure technique: YesDuration of manual compression (minutes): 5 ContrastContrast agent: Isovue 300Contrast volume (mL): 150 Radiation DoseFluoroscopy time (minutes): 26.8 Reference air kerma (mGy): 927 Additional DetailsAdditional description of procedure: NoneEquipment details: NoneSpecimens removed: NoneEstimated blood loss (mL): Less than 10Standardized report: [email or web address] AttestationSigner name: Jammie Aguilar attest that I was present for the entire procedure. I reviewed the stored images and agree with the report as written. Signed: Mcknight, Kaiming MDReport Verified Date/Time: 11/22/2020 10:03:30 SENSITIVITY TROPONIN I 2020-11-20 19:01:00 Test Item Value Reference Range Interpretation Comme nts HIGH SENSITIVITY TROPONIN I 6 pg/ml See_Comment [Automated message] The system (test code = 6463962) which generated this result transmitted ref erence range: <=35. The reference r josé miguel was not used to interpret th is result as normal/abnormal . Car Electronics Installer ID - DBThe CAREERS ADVISER STAT High Sensitivity Troponin-I results should be used in conjunctionwith other diagnostic information such as ECG, clinical observations and information, and patient symptoms to aid in the diagnosis of DE.CT, CTA, [id number] 14:24:00Unlisted Reason for Exam - Click Yes and Enter Reason Below->No [facility] : 1995 Sex: MFINAL REPORT CT of the Chest dated 11/20/2020 CLINICAL INFORMATION: Chest pain, normal EKG Comment: Axial images of the chest were obtained from thoracic inlet to the upper abdomen with and without intravenous contrast. This exam was performed according to our departmental dose-optimization program, which includes automated exposure control, adjustment of the mA and/or kV according to patient size and/or use of interactive reconstruction technique. Heart is normal in size. Thoracic aorta is normal in caliber. No thoracic aortic aneurysm or dissection is seen. Great vessels are unremarkable. No adenopathy in the mediastinum or perihilar region. Trachea and mainstem bronchi are patent. Subsegmental atelectasis is seen in the right mid and both lower lobes. Lungs are clear. No nodular, mass lesion or airspace disease is noted. No interstitial disease or bronchiectasis is present. No pleural effusion or pleural based mass is seen. Visualized upper abdomen demonstrates no focal lesion. Impression: Unremarkable CT examination of the chest. Signed: Dimple Langford Verified Date/Time: 11/20/2020 14:24:52 Reading Location: [address] Body Reading Room -[id number] 12:11:00 Test Item Value Reference Range Interpretation Comments D-DIMER QUANTITATIVE (BEAKER) 5.16 MG/L FEU <0.50 H (test code = 671) Intended Use: The D-Dimer Assay can be used to aid in the diagnosis of Deep Vein Thrombosis (DVT) and Pulmonary Embolism Disease (PED).In patients with low pre- test probability, various studies concerning STA Liatest D-dimer test have reported that with a cutoff value of 0.50 MG/L FEU, the Negative Predictive Value (NPV) regarding the exclusion of thrombosis is within 95-100% range.B-TYPE NATRIURETIC FACTOR (BNP)2020-11-20 11:55:00 Test Item Value Reference Range Interpretation Comments B-TYPE NATRIURETIC PEPTIDE (BEAKER) < pg/mL 0-100 (test code = 700) Car [employer] Installer ID Maggi SINGH FHIGH SENSITIVITY TROPONIN [id number] 11:53:00 Test Item Value Reference Range Interpretation Comments HIGH SENSITIVITY 6 pg/ml See_Comment [Automated message] TROPONIN I (test code = The system which [id number]) generated this result transmitted ref erence range: <=35. Th e reference range was not used to interpr et this result as normal/abnormal . Car [employer] Installer ID Maggi SINGH FThe CAREERS ADVISER STAT High Sensitivity Troponin-I results should be used in conjunction with other diagnostic information such as ECG, clinical observations and information, and patient symptoms to aid in the diagnosis of DE.[id number] 11:48:00 Test Item Value Reference Range Interpretation Comments MAGNESIUM (BEAKER) (test code = 1.9 mg/dL 1.6-2.6 627) [employer] Installer ID Maggi SINGH FCOMPREHENSIVE METABOLIC [id number] 11:48:00 Test Item Value Reference Range Interpretation Comments TOTAL PROTEIN 7.3 gm/dL 6.0-8.3 (BEAKER) (test code = 770) ALBUMIN (BEAKER) 4.2 g/dL 3.5-5.0 (test code = 1145) ALKALINE PHOSPHATASE 102 U/L 40-150 (BEAKER) (test code = 346) BILIRUBIN TOTAL 1.0 mg/dL 0.2-1.2 (BEAKER) (test code = 377) SODIUM (BEAKER) (test 137 meq/L 136-145 code = 381) POTASSIUM (BEAKER) 3.9 meq/L 3.5-5.1 (test code = 379) CHLORIDE (BEAKER) 99 meq/L 98-107 (test code = 382) CO2 (BEAKER) (test 29 meq/L 22-29 code = 355) BLOOD UREA NITROGEN 19 mg/dL 7-21 (BEAKER) (test code = 354) CREATININE (BEAKER) 1.92 mg/dL 0.57-1.25 H (test code = 358) GLUCOSE RANDOM 110 mg/dL 70-105 H (BEAKER) (test code = 652) CALCIUM (BEAKER) 9.8 mg/dL 8.4-10.2 (test code = 697) AST (SGOT) (BEAKER) 20 U/L 5-34 (test code = 353) ALT (SGPT) (BEAKER) 13 U/L 6-55 (test code = 347) EGFR (BEAKER) (test 42 mL/min/1.73 ESTIMA REY GFR IS code = 1092) sq m NOT ACCURATE CREATININE CLEARANCE IN PREDICTING GLOMERULAR FILTRATION RATE . ESTIMATED GFR I S NOT APPLICABLE FOR DIALYSIS PATIEN TS. Car Electronics Installer ID - FRANCISCO [id number] 11:48:00 Test Item Value Reference Range Interpretation Comments PHOSPHORUS (BEAKER) (test code = 2.8 mg/dL 2.3-4.7 604) Car [employer] Installer ID Maggi SINGH FPROTHROMBIN TIME/[id number] 11:37:00 Test Item Value Reference Range Interpretation Comments PROTIME (BEAKER) 13.1 seconds 11.9-14.2 (test code = 759) INR (BEAKER) (test 1.01 See_Comment [Automat ed message] code = 370) The system whic h generated this result transmitted ref erence range: <=5.90. The reference range was not used to int erpret this result as normal/abnormal . RECOMMENDED COUMADIN/WARFARIN INR THERAPY RANGESSTANDARD DOSE: 2.0 - 3.0 Includes: PROPHYLAXIS forvenous thrombosis, systemic embolization; TREATMENT for venous thrombosis and/or pulmonary embolus.HIGH RISK: Target INR is 2.5-3.5 for patients with mechanical heart valves.CBC W/PLT COUNT & AUTO DIFFERENTIAL 2020-11-20 11:34:00 Test Item Value Reference Range Interpretation Comments WHITE BLOOD CELL COUNT (BEAKER) 14.4 K/ L 3.5-10.5 H (test code = 775) RED BLOOD CELL COUNT (BEAKER) 3.52 M/ L 4.63-6.08 L (test code = 761) HEMOGLOBIN (BEAKER) (test code = 10.9 GM/DL 13.7-17.5 L 410) HEMATOCRIT (BEAKER) (test code = 31.3 % 40.1-51.0 L 411) MEAN CORPUSCULAR VOLUME (BEAKER) 88.9 fL 79.0-92.2 (test code = 753) MEAN CORPUSCULAR HEMOGLOBIN 31.0 pg 25.7-32.2 (BEAKER) (test code = 751) MEAN CORPUSCULAR HEMOGLOBIN CONC 34.8 GM/DL 32.3-36.5 (BEAKER) (test code = 752) RED CELL DISTRIBUTION WIDTH 12.8 % 11.6-14.4 (BEAKER) (test code = 412) PLATELET COUNT (BEAKER) (test 287 K/CU MM 150-450 code = 756) MEAN PLATELET VOLUME (BEAKER) 10.9 fL 9.4-12.4 (test code = 754) NUCLEATED RED BLOOD CELLS 0 /100 WBC 0-0 (BEAKER) (test code = 413) NEUTROPHILS RELATIVE PERCENT 79 % (BEAKER) (test code = 429) LYMPHOCYTES RELATIVE PERCENT 10 % (BEAKER) (test code = 430) MONOCYTES RELATIVE PERCENT 7 % (BEAKER) (test code = 431) EOSINOPHILS RELATIVE PERCENT 2 % (BEAKER) (test code = 432) BASOPHILS RELATIVE PERCENT 1 % (BEAKER) (test code = 437) NEUTROPHILS ABSOLUTE COUNT 11.39 K/ L 1.78-5.38 H (BEAKER) (test code = 670) LYMPHOCYTES ABSOLUTE COUNT 1.50 K/ L 1.32-3.57 (BEAKER) (test code = 414) MONOCYTES ABSOLUTE COUNT (BEAKER) 1.07 K/ L 0.30-0.82 H (test code = 415) EOSINOPHILS ABSOLUTE COUNT 0.29 K/ L 0.04-0.54 (BEAKER) (test code = 416) BASOPHILS ABSOLUTE COUNT (BEAKER) 0.08 K/ L 0.01-0.08 (test code = 417) IMMATURE GRANULOCYTES-RELATIVE 0 % 0-1 PERCENT (BEAKER) (test code = 2801) [id number] 04:58:00 Test Item Value Reference Range Interpretation Comments MAGNESIUM (BEAKER) (test code = 2.2 mg/dL 1.6-2.6 627) Car [employer] Installer ID - JORDAN [id number] 04:58:00 Test Item Value Reference Range Interpretation Comments PHOSPHORUS (BEAKER) (test code = 2.9 mg/dL 2.3-4.7 604) Car [employer] Installer ID - JORDAN MBASIC METABOLIC [id number] 04:58:00 Test Item Value Reference Range Interpretation Comments SODIUM (BEAKER) 138 meq/L 136-145 (test code = 381) POTASSIUM (BEAKER) 4.1 meq/L 3.5-5.1 (test code = 379) CHLORIDE (BEAKER) 101 meq/L 98-107 (test code = 382) CO2 (BEAKER) (test 29 meq/L 22-29 code = 355) BLOOD UREA NITROGEN 11 mg/dL 7-21 (BEAKER) (test code = 354) CREATININE (BEAKER) 1.76 mg/dL 0.57-1.25 H (test code = 358) GLUCOSE RANDOM 94 mg/dL 70-105 (BEAKER) (test code = 652) CALCIUM (BEAKER) 9.1 mg/dL 8.4-10.2 (test code = 697) EGFR (BEAKER) (test 47 mL/min/1.73 ESTIMA REY GFR IS code = 1092) sq m NOT ACCURATE CREATININE CLEARANCE IN PREDICTING GLOMERULAR FILTRATION RATE . ESTIMATED GFR I S NOT APPLICABLE FOR DIALYSIS PATIEN TS. Car Electronics Installer ID - JORDAN MCBC W/PLT COUNT & AUTO [id number] 04:45:00 Test Item Value Reference Range Interpretation Comments WHITE BLOOD CELL COUNT (BEAKER) 10.4 K/ L 3.5-10.5 (test code = 775) RED BLOOD CELL COUNT (BEAKER) 2.85 M/ L 4.63-6.08 L (test code = 761) HEMOGLOBIN (BEAKER) (test code = 8.7 GM/DL 13.7-17.5 L 410) HEMATOCRIT (BEAKER) (test code = 26.2 % 40.1-51.0 L 411) MEAN CORPUSCULAR VOLUME (BEAKER) 91.9 fL 79.0-92.2 (test code = 753) MEAN CORPUSCULAR HEMOGLOBIN 30.5 pg 25.7-32.2 (BEAKER) (test code = 751) MEAN CORPUSCULAR HEMOGLOBIN CONC 33.2 GM/DL 32.3-36.5 (BEAKER) (test code = 752) RED CELL DISTRIBUTION WIDTH 12.9 % 11.6-14.4 (BEAKER) (test code = 412) PLATELET COUNT (BEAKER) (test 152 K/CU MM 150-450 code = 756) MEAN PLATELET VOLUME (BEAKER) 12.1 fL 9.4-12.4 (test code = 754) NUCLEATED RED BLOOD CELLS 0 /100 WBC 0-0 (BEAKER) (test code = 413) NEUTROPHILS RELATIVE PERCENT 70 % (BEAKER) (test code = 429) LYMPHOCYTES RELATIVE PERCENT 20 % (BEAKER) (test code = 430) MONOCYTES RELATIVE PERCENT 8 % (BEAKER) (test code = 431) EOSINOPHILS RELATIVE PERCENT 1 % (BEAKER) (test code = 432) BASOPHILS RELATIVE PERCENT 1 % (BEAKER) (test code = 437) NEUTROPHILS ABSOLUTE COUNT 7.32 K/ L 1.78-5.38 H (BEAKER) (test code = 670) LYMPHOCYTES ABSOLUTE COUNT 2.06 K/ L 1.32-3.57 (BEAKER) (test code = 414) MONOCYTES ABSOLUTE COUNT (BEAKER) 0.85 K/ L 0.30-0.82 H (test code = 415) EOSINOPHILS ABSOLUTE COUNT 0.08 K/ L 0.04-0.54 (BEAKER) (test code = 416) BASOPHILS ABSOLUTE COUNT (BEAKER) 0.10 K/ L 0.01-0.08 H (test code = 417) IMMATURE GRANULOCYTES-RELATIVE 0 % 0-1 PERCENT (BEAKER) (test code = 2801) RAD, ABDOMEN/KUB, 1 VIEW [id number] 18:55:00Reason for exam:->nausea [facility] [place] [facility] : 1995 Sex: MFINAL REPORT TECHNIQUE: Single View of the Abdomen. INDICATION: nausea. COMPARISON: CT from 11/15/2020. FINDINGS/IMPRESSION: The bowel gas pattern is normal. No abnormal calcifications. No acute bone abnormality. Small right pleural effusion with right basilar atelectasis.Signed: Mark Crump Verified Date/Time: 11/17/2020 18:55:53 Reading Location: [address] Consult Reading Room BASIC METABOLIC [id number] 11:39:00 Test Item Value Reference Range Interpretation Comments SODIUM (BEAKER) 137 meq/L 136-145 (test code = 381) POTASSIUM (BEAKER) 3.9 meq/L 3.5-5.1 (test code = 379) CHLORIDE (BEAKER) 103 meq/L 98-107 (test code = 382) CO2 (BEAKER) (test 25 meq/L 22-29 code = 355) BLOOD UREA NITROGEN 15 mg/dL 7-21 (BEAKER) (test code = 354) CREATININE (BEAKER) 1.75 mg/dL 0.57-1.25 H (test code = 358) GLUCOSE RANDOM 96 mg/dL 70-105 (BEAKER) (test code = 652) CALCIUM (BEAKER) 9.0 mg/dL 8.4-10.2 (test code = 697) EGFR (BEAKER) (test 47 mL/min/1.73 ESTIMA REY GFR IS code = 1092) sq m NOT ACCURATE CREATININE CLEARANCE IN PREDICTING GLOMERULAR FILTRATION RATE . ESTIMATED GFR I S NOT APPLICABLE FOR DIALYSIS PATIEN TS. Car Electronics Installer ID - RADHA MCBC W/PLT COUNT & AUTO [id number] 03:36:00 Test Item Value Reference Range Interpretation Comments WHITE BLOOD CELL COUNT (BEAKER) 13.0 K/ L 3.5-10.5 H (test code = 775) RED BLOOD CELL COUNT (BEAKER) 2.58 M/ L 4.63-6.08 L (test code = 761) HEMOGLOBIN (BEAKER) (test code = 8.1 GM/DL 13.7-17.5 L 410) HEMATOCRIT (BEAKER) (test code = 23.9 % 40.1-51.0 L 411) MEAN CORPUSCULAR VOLUME (BEAKER) 92.6 fL 79.0-92.2 H (test code = 753) MEAN CORPUSCULAR HEMOGLOBIN 31.4 pg 25.7-32.2 (BEAKER) (test code = 751) MEAN CORPUSCULAR HEMOGLOBIN CONC 33.9 GM/DL 32.3-36.5 (BEAKER) (test code = 752) RED CELL DISTRIBUTION WIDTH 13.6 % 11.6-14.4 (BEAKER) (test code = 412) PLATELET COUNT (BEAKER) (test 159 K/CU MM 150-450 code = 756) MEAN PLATELET VOLUME (BEAKER) 12.0 fL 9.4-12.4 (test code = 754) NUCLEATED RED BLOOD CELLS 0 /100 WBC 0-0 (BEAKER) (test code = 413) NEUTROPHILS RELATIVE PERCENT 70 % (BEAKER) (test code = 429) LYMPHOCYTES RELATIVE PERCENT 22 % (BEAKER) (test code = 430) MONOCYTES RELATIVE PERCENT 7 % (BEAKER) (test code = 431) EOSINOPHILS RELATIVE PERCENT 1 % (BEAKER) (test code = 432) BASOPHILS RELATIVE PERCENT 1 % (BEAKER) (test code = 437) NEUTROPHILS ABSOLUTE COUNT 9.06 K/ L 1.78-5.38 H (BEAKER) (test code = 670) LYMPHOCYTES ABSOLUTE COUNT 2.82 K/ L 1.32-3.57 (BEAKER) (test code = 414) MONOCYTES ABSOLUTE COUNT (BEAKER) 0.93 K/ L 0.30-0.82 H (test code = 415) EOSINOPHILS ABSOLUTE COUNT 0.06 K/ L 0.04-0.54 (BEAKER) (test code = 416) BASOPHILS ABSOLUTE COUNT (BEAKER) 0.06 K/ L 0.01-0.08 (test code = 417) IMMATURE GRANULOCYTES-RELATIVE 0 % 0-1 PERCENT (BEAKER) (test code = 2801) [id number] 03:17:00 Test Item Value Reference Range Interpretation Comments MAGNESIUM (BEAKER) 1.6 mg/dL 1.6-2.6 Specimen slightly (test code = 627) hemolyzed Car [employer] Installer ID - [id number] 03:17:00 Test Item Value Reference Range Interpretation Comments PHOSPHORUS (BEAKER) 2.8 mg/dL 2.3-4.7 Specimen slightly (test code = 604) hemolyzed Car [employer] Installer ID - BSBASIC METABOLIC [id number] 03:17:00 Test Item Value Reference Range Interpretation Comments SODIUM (BEAKER) 136 meq/L 136-145 (test code = 381) POTASSIUM (BEAKER) 4.1 meq/L 3.5-5.1 Specimen slightly (test code = 379) hemolyzed CHLORIDE (BEAKER) 104 meq/L 98-107 (test code = 382) CO2 (BEAKER) (test 22 meq/L 22-29 code = 355) BLOOD UREA NITROGEN 18 mg/dL 7-21 (BEAKER) (test code = 354) CREATININE (BEAKER) 1.86 mg/dL 0.57-1.25 H Specimen slightly (test code = 358) hemolyzed GLUCOSE RANDOM 95 mg/dL 70-105 (BEAKER) (test code = 652) CALCIUM (BEAKER) 8.7 mg/dL 8.4-10.2 (test code = 697) EGFR (BEAKER) (test 44 mL/min/1.73 ESTIMA REY GFR IS code = 1092) sq m NOT ACCURATE CREATININE CLEARANCE IN PREDICTING GLOMERULAR FILTRATION RATE . ESTIMATED GFR I S NOT APPLICABLE FOR DIALYSIS PATIEN TS. Car Electronics Installer ID - BSHEPATIC FUNCTION [id number] 03:17:00 Test Item Value Reference Range Interpretation Comments TOTAL PROTEIN (BEAKER) 5.5 gm/dL 6.0-8.3 L Speci men slightly (test code = 770) hemolyzed ALBUMIN (BEAKER) (test 3.3 g/dL 3.5-5.0 L Speci men slightly code = 1145) hemolyzed BILIRUBIN TOTAL 0.3 mg/dL 0.2-1.2 Specimen sli ghtly (BEAKER) (test code = hemoly zed 377) BILIRUBIN DIRECT 0.1 mg/dL 0.1-0.5 Specimen sl ightly (BEAKER) (test code = hemoly zed 706) ALKALINE PHOSPHATASE 75 U/L 40-150 (BEAKER) (test code = 346) AST (SGOT) (BEAKER) 16 U/L 5-34 Specimen slightly (test code = 353) hemolyzed ALT (SGPT) (BEAKER) 10 U/L 6-55 Specimen slightly (test code = 347) hemolyzed Car [employer] Installer ID - BSBASIC METABOLIC [id number] 18:29:00 Test Item Value Reference Range Interpretation Comments SODIUM (BEAKER) 134 meq/L 136-145 L (test code = 381) POTASSIUM (BEAKER) 3.9 meq/L 3.5-5.1 (test code = 379) CHLORIDE (BEAKER) 102 meq/L 98-107 (test code = 382) CO2 (BEAKER) (test 23 meq/L 22-29 code = 355) BLOOD UREA NITROGEN 24 mg/dL 7-21 H (BEAKER) (test code = 354) CREATININE (BEAKER) 2.24 mg/dL 0.57-1.25 H (test code = 358) GLUCOSE RANDOM 119 mg/dL 70-105 H (BEAKER) (test code = 652) CALCIUM (BEAKER) 8.6 mg/dL 8.4-10.2 (test code = 697) EGFR (BEAKER) (test 35 mL/min/1.73 ESTIMA REY GFR IS code = 1092) sq m NOT ACCURATE CREATININE CLEARANCE IN PREDICTING GLOMERULAR FILTRATION RATE . ESTIMATED GFR I S NOT APPLICABLE FOR DIALYSIS PATIEN TS. Car Electronics Installer ID - BSLACTIC ACID, [id number] 18:21:00 Test Item Value Reference Range Interpretation Comments LACTATE BLOOD VENOUS (2) (BEAKER) 2.18 mmol/L 0.50-2.20 (test code = 2872) Car [employer] Installer ID - BSCBC W/PLT COUNT & AUTO [id number] 18:14:00 Test Item Value Reference Range Interpretation Comments WHITE BLOOD CELL COUNT (BEAKER) 15.0 K/ L 3.5-10.5 H (test code = 775) RED BLOOD CELL COUNT (BEAKER) 2.71 M/ L 4.63-6.08 L (test code = 761) HEMOGLOBIN (BEAKER) (test code = 8.5 GM/DL 13.7-17.5 L 410) HEMATOCRIT (BEAKER) (test code = 24.8 % 40.1-51.0 L 411) MEAN CORPUSCULAR VOLUME (BEAKER) 91.5 fL 79.0-92.2 (test code = 753) MEAN CORPUSCULAR HEMOGLOBIN 31.4 pg 25.7-32.2 (BEAKER) (test code = 751) MEAN CORPUSCULAR HEMOGLOBIN CONC 34.3 GM/DL 32.3-36.5 (BEAKER) (test code = 752) RED CELL DISTRIBUTION WIDTH 13.6 % 11.6-14.4 (BEAKER) (test code = 412) PLATELET COUNT (BEAKER) (test 153 K/CU MM 150-450 code = 756) MEAN PLATELET VOLUME (BEAKER) 12.1 fL 9.4-12.4 (test code = 754) NUCLEATED RED BLOOD CELLS 0 /100 WBC 0-0 (BEAKER) (test code = 413) NEUTROPHILS RELATIVE PERCENT 77 % (BEAKER) (test code = 429) LYMPHOCYTES RELATIVE PERCENT 15 % (BEAKER) (test code = 430) MONOCYTES RELATIVE PERCENT 8 % (BEAKER) (test code = 431) EOSINOPHILS RELATIVE PERCENT 0 % (BEAKER) (test code = 432) BASOPHILS RELATIVE PERCENT 0 % (BEAKER) (test code = 437) NEUTROPHILS ABSOLUTE COUNT 11.54 K/ L 1.78-5.38 H (BEAKER) (test code = 670) LYMPHOCYTES ABSOLUTE COUNT 2.18 K/ L 1.32-3.57 (BEAKER) (test code = 414) MONOCYTES ABSOLUTE COUNT (BEAKER) 1.18 K/ L 0.30-0.82 H (test code = 415) EOSINOPHILS ABSOLUTE COUNT 0.01 K/ L 0.04-0.54 L (BEAKER) (test code = 416) BASOPHILS ABSOLUTE COUNT (BEAKER) 0.03 K/ L 0.01-0.08 (test code = 417) IMMATURE GRANULOCYTES-RELATIVE 1 % 0-1 PERCENT (BEAKER) (test code = 2801) POCT-GLUCOSE [id number] 16:32:00 Test Item Value Reference Range Interpretation Comments POC-GLUCOSE METER 113 mg/dL 70-110 H : TESTED A T [facility] 6720 (BEAKER) (test code = [place], 1538) [id number]: Car Electronics Installer/Techni burt ID = [id number] for [employer] (contract), Apr [id number] 14:44:00 Test Item Value Reference Range Interpretation Comments FERRITIN (BEAKER) (test code = 249.19 ng/mL 5.00-275.00 361) [employer] Installer ID - JORDAN MCOMPLEMENT COMPONENT [id number] 14:01:00 Test Item Value Reference Range Interpretation Comments C4 COMPLEMENT (BEAKER) (test code = 26 mg/dL 15-57 394) [employer] Installer ID - JORDAN MCOMPLEMENT COMPONENT [id number] 14:01:00 Test Item Value Reference Range Interpretation Comments C3 COMPLEMENT (BEAKER) (test code = 92 mg/dL 82-193 393) [employer] Installer ID - JORDAN RACHEL, TIBC, % SAT. (WITHOUT FERRITIN)2020-11-16 14:01:00 Test Item Value Reference Range Interpretation Comments IRON (BEAKER) (test code = 547) 123.0 ug/dL 40.0-160.0 TOTAL IRON BINDING CAPACITY 221 ug/dL 250-450 L (BEAKER) (test code = 769) IRON % SATURATION (2) (BEAKER) 56 % 20-55 H (test code = 2590) [employer] Installer ID - JORDAN MBASIC METABOLIC [id number] 14:00:00 Test Item Value Reference Range Interpretation Comments SODIUM (BEAKER) 136 meq/L 136-145 (test code = 381) POTASSIUM (BEAKER) 4.4 meq/L 3.5-5.1 (test code = 379) CHLORIDE (BEAKER) 103 meq/L 98-107 (test code = 382) CO2 (BEAKER) (test 23 meq/L 22-29 code = 355) BLOOD UREA NITROGEN 26 mg/dL 7-21 H (BEAKER) (test code = 354) CREATININE (BEAKER) 2.39 mg/dL 0.57-1.25 H (test code = 358) GLUCOSE RANDOM 142 mg/dL 70-105 H (BEAKER) (test code = 652) CALCIUM (BEAKER) 8.5 mg/dL 8.4-10.2 (test code = 697) EGFR (BEAKER) (test 33 mL/min/1.73 ESTIMA REY GFR IS code = 1092) sq m NOT ACCURATE CREATININE CLEARANCE IN PREDICTING GLOMERULAR FILTRATION RATE . ESTIMATED GFR I S NOT APPLICABLE FOR DIALYSIS PATIEN TS. Car [employer] Installer ID - JORDAN MLACTIC ACID, [id number] 13:56:00 Test Item Value Reference Range Interpretation Comments LACTATE BLOOD VENOUS (2) (BEAKER) 2.29 mmol/L 0.50-2.20 H (test code = 2872) [employer] Installer ID - JORDAN MCBC W/PLT COUNT & AUTO [id number] 13:34:00 Test Item Value Reference Range Interpretation Comments WHITE BLOOD CELL COUNT (BEAKER) 15.1 K/ L 3.5-10.5 H (test code = 775) RED BLOOD CELL COUNT (BEAKER) 2.89 M/ L 4.63-6.08 L (test code = 761) HEMOGLOBIN (BEAKER) (test code = 8.9 GM/DL 13.7-17.5 L 410) HEMATOCRIT (BEAKER) (test code = 26.0 % 40.1-51.0 L 411) MEAN CORPUSCULAR VOLUME (BEAKER) 90.0 fL 79.0-92.2 (test code = 753) MEAN CORPUSCULAR HEMOGLOBIN 30.8 pg 25.7-32.2 (BEAKER) (test code = 751) MEAN CORPUSCULAR HEMOGLOBIN CONC 34.2 GM/DL 32.3-36.5 (BEAKER) (test code = 752) RED CELL DISTRIBUTION WIDTH 13.8 % 11.6-14.4 (BEAKER) (test code = 412) PLATELET COUNT (BEAKER) (test 169 K/CU MM 150-450 code = 756) MEAN PLATELET VOLUME (BEAKER) 12.1 fL 9.4-12.4 (test code = 754) NUCLEATED RED BLOOD CELLS 0 /100 WBC 0-0 (BEAKER) (test code = 413) NEUTROPHILS RELATIVE PERCENT 83 % (BEAKER) (test code = 429) LYMPHOCYTES RELATIVE PERCENT 10 % (BEAKER) (test code = 430) MONOCYTES RELATIVE PERCENT 6 % (BEAKER) (test code = 431) EOSINOPHILS RELATIVE PERCENT 0 % (BEAKER) (test code = 432) BASOPHILS RELATIVE PERCENT 0 % (BEAKER) (test code = 437) NEUTROPHILS ABSOLUTE COUNT 12.49 K/ L 1.78-5.38 H (BEAKER) (test code = 670) LYMPHOCYTES ABSOLUTE COUNT 1.56 K/ L 1.32-3.57 (BEAKER) (test code = 414) MONOCYTES ABSOLUTE COUNT (BEAKER) 0.95 K/ L 0.30-0.82 H (test code = 415) EOSINOPHILS ABSOLUTE COUNT 0.00 K/ L 0.04-0.54 L (BEAKER) (test code = 416) BASOPHILS ABSOLUTE COUNT (BEAKER) 0.02 K/ L 0.01-0.08 (test code = 417) IMMATURE GRANULOCYTES-RELATIVE 0 % 0-1 PERCENT (BEAKER) (test code = 2801) HEMOGLOBIN [id number] 12:16:00 Test Item Value Reference Range Interpretation Comments HEMOGLOBIN A1C (BEAKER) (test code = 5.2 % 4.3-6.1 368) U/S, RENAL, [id number] 12:07:00Reason for exam:->DANIEL eval hydronephrosisST[facility] : 1995 Sex: MFINAL REPORT TECHNIQUE: Grayscale ultrasound of the kidneys and bladder. INDICATION: DANIEL eval hydronephrosis. COMPARISON: CT from 11/15/2020. FINDINGS: RIGHT KIDNEY: The right kidney measures 8.1 x 2.9 x 4.6 cm with a cortical thickness of 0.7 cm. No solid mass lesions. Nohydronephrosis. Renal artery and vein are patent. LEFT KIDNEY: The left kidney measures 10.4 x 5.1 x 5.2 cm with a cortical thickness of 1.7 cm. No solid mass lesions. No hydronephrosis. Renal artery and vein are patent. A left lower pole anechoic renal lesion with posterior acoustic enhancement measures 1.8 cm and is consistent with a cyst. A left interpolar anechoic renal lesion with posterior acoustic enhancement measures 1.2 cm and is consistent with a simple renal cyst. No routine follow-up imaging is recommended for this finding. BLADDER: Not definitely visualized. The area measured as the bladder is likely hemorrhage layering in the peritoneum. Small volume ascites. IMPRESSION: 1.The small m easurement of the right kidney may be due to technique since the kidney was normal size on the priorCT. No hydronephrosis 2.Small volume ascites. There is some echogenic material which is most consistent with blood. Signed: Mark Crump MDReport Verified Date/Time: 11/16/2020 12:07:09 CREATININE, RANDOM [id number] 11:39:00 Test Item Value Reference Range Interpretation Comments CREATININE URINE (BEAKER) (test 87.6 mg/dL code = 375) Reference Range: No NormalsOperator ID - JORDAN MSODIUM, RANDOM [id number] 11:39:00 Test Item Value Reference Range Interpretation Comments SODIUM URINE (BEAKER) (test code = 25 meq/L 243) Reference Range: No NormalsOperator ID - JORDAN MPOCT-GLUCOSE [id number] 11:27:00 Test Item Value Reference Range Interpretation Comments POC-GLUCOSE METER 154 mg/dL 70-110 H : TESTED A T [facility] 6720 (BEAKER) (test code = [place], 1538) [id number]: Car Electronics Installer/Techni burt ID = [id number] for [employer] (contract)Boo URINALYSIS W/ [id number] 11:24:00 Test Item Value Reference Range Interpretation Comments COLOR (BEAKER) (test code = 470) Light Yellow CLARITY (BEAKER) (test code = Clear 469) SPECIFIC GRAVITY UA (BEAKER) > 1.001-1.035 H (test code = 468) PH UA (BEAKER) (test code = 467) 6.0 5.0-8.0 PROTEIN UA (BEAKER) (test code = 100 mg/dL Negative A 464) GLUCOSE UA (BEAKER) (test code = Negative Negative 365) KETONES UA (BEAKER) (test code = Negative Negative 371) BILIRUBIN UA (BEAKER) (test code Negative Negative = 462) BLOOD UA (BEAKER) (test code = Negative Negative 461) NITRITE UA (BEAKER) (test code = Negative Negative 465) LEUKOCYTE ESTERASE UA (BEAKER) Negative Negative (test code = 466) UROBILINOGEN UA (BEAKER) (test 0.2 mg/dL 0.2-1.0 code = 463) RBC UA (BEAKER) (test code = 1 /HPF 519) WBC UA (BEAKER) (test code = 1 /HPF 520) BACTERIA (BEAKER) (test code = None Seen 517) CRYSTALS, URINE (BEAKER) (test None Seen code = 1521) SOURCE(BEAKER) (test code = 6235) Car [employer] Installer ID - [auto]Car [employer] Installer ID - techBASI METABOLIC [id number] 09:21:00 Test Item Value Reference Range Interpretation Comments SODIUM (BEAKER) 138 meq/L 136-145 (test code = 381) POTASSIUM (BEAKER) 4.9 meq/L 3.5-5.1 Specimen slightly (test code = 379) hemolyzed CHLORIDE (BEAKER) 105 meq/L 98-107 (test code = 382) CO2 (BEAKER) (test 22 meq/L 22-29 code = 355) BLOOD UREA NITROGEN 26 mg/dL 7-21 H (BEAKER) (test code = 354) CREATININE (BEAKER) 2.32 mg/dL 0.57-1.25 H Specimen slightly (test code = 358) hemolyzed GLUCOSE RANDOM 115 mg/dL 70-105 H (BEAKER) (test code = 652) CALCIUM (BEAKER) 9.2 mg/dL 8.4-10.2 (test code = 697) EGFR (BEAKER) (test 34 mL/min/1.73 ESTIMA REY GFR IS code = 1092) sq m NOT ACCURATE CREATININE CLEARANCE IN PREDICTING GLOMERULAR FILTRATION RATE . ESTIMATED GFR I S NOT APPLICABLE FOR DIALYSIS PATIEN TS. Car [employer] Installer ID - JORDAN MCREATINE KINASE (CK)2020-11-16 08:40:00 Test Item Value Reference Range Interpretation Comments CREATINE KINASE TOTAL (BEAKER) (test 83 U/L 29-200 code = 380) Car [employer] Installer ID - JORDAN MCBC W/PLT COUNT & AUTO [id number] 07:31:00 Test Item Value Reference Range Interpretation Comments WHITE BLOOD CELL COUNT (BEAKER) 17.7 K/ L 3.5-10.5 H (test code = 775) RED BLOOD CELL COUNT (BEAKER) 3.26 M/ L 4.63-6.08 L (test code = 761) HEMOGLOBIN (BEAKER) (test code = 10.0 GM/DL 13.7-17.5 L 410) HEMATOCRIT (BEAKER) (test code = 29.8 % 40.1-51.0 L 411) MEAN CORPUSCULAR VOLUME (BEAKER) 91.4 fL 79.0-92.2 (test code = 753) MEAN CORPUSCULAR HEMOGLOBIN 30.7 pg 25.7-32.2 (BEAKER) (test code = 751) MEAN CORPUSCULAR HEMOGLOBIN CONC 33.6 GM/DL 32.3-36.5 (BEAKER) (test code = 752) RED CELL DISTRIBUTION WIDTH 45.4 % 11.6-14.4 H (BEAKER) (test code = 412) PLATELET COUNT (BEAKER) (test 209 K/CU MM 150-450 code = 756) MEAN PLATELET VOLUME (BEAKER) 13.1 fL 9.4-12.4 H (test code = 754) NUCLEATED RED BLOOD CELLS 0 /100 WBC 0-0 (BEAKER) (test code = 413) NEUTROPHILS RELATIVE PERCENT 88 % (BEAKER) (test code = 429) LYMPHOCYTES RELATIVE PERCENT 7 % (BEAKER) (test code = 430) MONOCYTES RELATIVE PERCENT 4 % (BEAKER) (test code = 431) EOSINOPHILS RELATIVE PERCENT 0 % (BEAKER) (test code = 432) BASOPHILS RELATIVE PERCENT 0 % (BEAKER) (test code = 437) NEUTROPHILS ABSOLUTE COUNT 15.63 K/ L 1.78-5.38 H (BEAKER) (test code = 670) LYMPHOCYTES ABSOLUTE COUNT 1.21 K/ L 1.32-3.57 L (BEAKER) (test code = 414) MONOCYTES ABSOLUTE COUNT (BEAKER) 0.76 K/ L 0.30-0.82 (test code = 415) EOSINOPHILS ABSOLUTE COUNT 0.00 K/ L 0.04-0.54 L (BEAKER) (test code = 416) BASOPHILS ABSOLUTE COUNT (BEAKER) 0.02 K/ L 0.01-0.08 (test code = 417) [id number] 04:39:00 Test Item Value Reference Range Interpretation Comments MAGNESIUM (BEAKER) 1.8 mg/dL 1.6-2.6 Specimen slightly (test code = 627) hemolyzed Car [employer] Installer ID - JORDAN [id number] 04:39:00 Test Item Value Reference Range Interpretation Comments PHOSPHORUS (BEAKER) 4.2 mg/dL 2.3-4.7 Specimen slightly (test code = 604) hemolyzed Car [employer] Installer ID - JORDAN MBASIC METABOLIC [id number] 04:39:00 Test Item Value Reference Range Interpretation Comments SODIUM (BEAKER) 136 meq/L 136-145 (test code = 381) POTASSIUM (BEAKER) 5.4 meq/L 3.5-5.1 H Specimen slightly (test code = 379) hemolyzed CHLORIDE (BEAKER) 105 meq/L 98-107 (test code = 382) CO2 (BEAKER) (test 21 meq/L 22-29 L code = 355) BLOOD UREA NITROGEN 23 mg/dL 7-21 H (BEAKER) (test code = 354) CREATININE (BEAKER) 2.14 mg/dL 0.57-1.25 H Specimen slightly (test code = 358) hemolyzed GLUCOSE RANDOM 133 mg/dL 70-105 H (BEAKER) (test code = 652) CALCIUM (BEAKER) 9.2 mg/dL 8.4-10.2 (test code = 697) EGFR (BEAKER) (test 37 mL/min/1.73 ESTIMA REY GFR IS code = 1092) sq m NOT ACCURATE CREATININE CLEARANCE IN PREDICTING GLOMERULAR FILTRATION RATE . ESTIMATED GFR I S NOT APPLICABLE FOR DIALYSIS PATIEN TS. Car Electronics Installer ID - JORDAN MHEPATIC FUNCTION [id number] 04:39:00 Test Item Value Reference Range Interpretation Comments TOTAL PROTEIN (BEAKER) 6.3 gm/dL 6.0-8.3 Speci men slightly (test code = 770) hemolyzed ALBUMIN (BEAKER) (test 3.7 g/dL 3.5-5.0 Speci men slightly code = 1145) hemolyzed BILIRUBIN TOTAL 0.4 mg/dL 0.2-1.2 Specimen sli ghtly (BEAKER) (test code = hemoly zed 377) BILIRUBIN DIRECT 0.2 mg/dL 0.1-0.5 Specimen sl ightly (BEAKER) (test code = hemoly zed 706) ALKALINE PHOSPHATASE 92 U/L 40-150 (BEAKER) (test code = 346) AST (SGOT) (BEAKER) 15 U/L 5-34 Specimen slightly (test code = 353) hemolyzed ALT (SGPT) (BEAKER) 12 U/L 6-55 Specimen slightly (test code = 347) hemolyzed Car [employer] Installer ID - JORDAN MPROTHROMBIN [id number] 04:38:00 Test Item Value Reference Range Interpretation Comments PROTIME (BEAKER) 13.5 seconds 11.9-14.2 (test code = 759) INR (BEAKER) (test 1.05 See_Comment [Automat ed message] code = 370) The system [employer] generated this result transmitted ref erence range: <=5.90. The reference range was not used to int erpret this result as normal/abnormal . RECOMMENDED COUMADIN/WARFARIN INR THERAPY RANGESSTANDARD DOSE: 2.0 - 3.0 Includes: PROPHYLAXIS forvenous thrombosis, systemic embolization; TREATMENT for venous thrombosis and/or pulmonary embolus.HIGH RISK: Target INR is 2.5-3.5 for patients with mechanical heart valves.[id number] 04:38:00 Test Item Value Reference Range Interpretation Comments FIBRINOGEN LEVEL (BEAKER) (test 349 mg/dl 225-434 code = 658) [id number] 04:38:00 Test Item Value Reference Range Interpretation Comments PARTIAL THROMBOPLASTIN TIME 25.7 seconds 22.5-36.0 (BEAKER) (test code = 760) POCT-GLUCOSE [id number] 00:46:00 Test Item Value Reference Range Interpretation Comments POC-GLUCOSE METER 138 mg/dL 70-110 H : TESTED A T [facility] 6720 (BEAKER) (test code = [place], 1538) [address]: Car Electronics Installer/Techni burt ID = [id number] for [employer] MET[employer] [id number] 21:52:00 Test Item Value Reference Range Interpretation Comments TOTAL PROTEIN 6.0 gm/dL 6.0-8.3 (BEAKER) (test code = 770) ALBUMIN (BEAKER) 3.6 g/dL 3.5-5.0 (test code = 1145) ALKALINE PHOSPHATASE 92 U/L 40-150 (BEAKER) (test code = 346) BILIRUBIN TOTAL 0.4 mg/dL 0.2-1.2 (BEAKER) (test code = 377) SODIUM (BEAKER) (test 137 meq/L 136-145 code = 381) POTASSIUM (BEAKER) 4.9 meq/L 3.5-5.1 (test code = 379) CHLORIDE (BEAKER) 108 meq/L 98-107 H (test code = 382) CO2 (BEAKER) (test 21 meq/L 22-29 L code = 355) BLOOD UREA NITROGEN 19 mg/dL 7-21 (BEAKER) (test code = 354) CREATININE (BEAKER) 1.87 mg/dL 0.57-1.25 H (test code = 358) GLUCOSE RANDOM 164 mg/dL 70-105 H (BEAKER) (test code = 652) CALCIUM (BEAKER) 8.6 mg/dL 8.4-10.2 (test code = 697) AST (SGOT) (BEAKER) 15 U/L 5-34 (test code = 353) ALT (SGPT) (BEAKER) 13 U/L 6-55 (test code = 347) EGFR (BEAKER) (test 44 mL/min/1.73 ESTIMA REY GFR IS code = 1092) sq m NOT ACCURATE CREATININE CLEARANCE IN PREDICTING GLOMERULAR FILTRATION RATE . ESTIMATED GFR I S NOT APPLICABLE FOR DIALYSIS PATIEN TS. Car Electronics Installer ID - [id number] 21:51:00 Test Item Value Reference Range Interpretation Comments PROTIME (BEAKER) (test 14.5 seconds 11.9-14.2 H code = 759) INR (BEAKER) (test 1.15 See_Comment [Automat ed code = 370) message] The sy stem which generated this result transmitted reference range : <=5.90. The reference range was not used to interpret this result as normal/abnormal . PARTIAL THROMBOPLASTIN 26.0 seconds 22.5-36.0 TIME (BEAKER) (test code = 760) RECOMMENDED COUMADIN/WARFARIN INR THERAPY RANGESSTANDARD DOSE: 2.0 - 3.0 Includes: PROPHYLAXIS forvenous thrombosis, systemic embolization; TREATMENT for venous thrombosis and/or pulmonary embolus.HIGH RISK: Target INR is 2.5-3.5 for patients with mechanical heart valves.CBC W/PLT COUNT & AUTO DIFFERENTIAL 2020-11-15 21:36:00 Test Item Value Reference Range Interpretation Comments WHITE BLOOD CELL COUNT (BEAKER) 17.1 K/ L 3.5-10.5 H (test code = 775) RED BLOOD CELL COUNT (BEAKER) 3.50 M/ L 4.63-6.08 L (test code = 761) HEMOGLOBIN (BEAKER) (test code = 10.8 GM/DL 13.7-17.5 L 410) HEMATOCRIT (BEAKER) (test code = 32.0 % 40.1-51.0 L 411) MEAN CORPUSCULAR VOLUME (BEAKER) 91.4 fL 79.0-92.2 (test code = 753) MEAN CORPUSCULAR HEMOGLOBIN 30.9 pg 25.7-32.2 (BEAKER) (test code = 751) MEAN CORPUSCULAR HEMOGLOBIN CONC 33.8 GM/DL 32.3-36.5 (BEAKER) (test code = 752) RED CELL DISTRIBUTION WIDTH 13.2 % 11.6-14.4 (BEAKER) (test code = 412) PLATELET COUNT (BEAKER) (test 192 K/CU MM 150-450 code = 756) MEAN PLATELET VOLUME (BEAKER) 12.1 fL 9.4-12.4 (test code = 754) NUCLEATED RED BLOOD CELLS 0 /100 WBC 0-0 (BEAKER) (test code = 413) NEUTROPHILS RELATIVE PERCENT 93 % (BEAKER) (test code = 429) LYMPHOCYTES RELATIVE PERCENT 4 % (BEAKER) (test code = 430) MONOCYTES RELATIVE PERCENT 3 % (BEAKER) (test code = 431) EOSINOPHILS RELATIVE PERCENT 0 % (BEAKER) (test code = 432) BASOPHILS RELATIVE PERCENT 0 % (BEAKER) (test code = 437) NEUTROPHILS ABSOLUTE COUNT 15.90 K/ L 1.78-5.38 H (BEAKER) (test code = 670) LYMPHOCYTES ABSOLUTE COUNT 0.60 K/ L 1.32-3.57 L (BEAKER) (test code = 414) MONOCYTES ABSOLUTE COUNT (BEAKER) 0.49 K/ L 0.30-0.82 (test code = 415) EOSINOPHILS ABSOLUTE COUNT 0.00 K/ L 0.04-0.54 L (BEAKER) (test code = 416) BASOPHILS ABSOLUTE COUNT (BEAKER) 0.03 K/ L 0.01-0.08 (test code = 417) IMMATURE GRANULOCYTES-RELATIVE 1 % 0-1 PERCENT (BEAKER) (test code = 7060)
[2021-05-06] MEDS ORDERED: HYDROCODONE/APAP 10/325 TAB ONE (21:19)
--- NOTE | 2021-05-06 21:51 | EDPHYS ---
Physician Documentation [facility] Name: Bassam Sharma Age: 26 yrs Sex: Male : 1995 Arrival Date: 05/06/2021 Time: 20:13 Bed 20 Private MD: ED Physician Pedro Pablo Ding HPI: 05/06 21:15 This 26 yrs old Male presents to ER via Ambulatory with complaints of Jaw Pain.pm1 21:15 The patient presents with pain. The problem is located in the lower left second molar pm1 and lower left third molar. Onset: The symptoms/episode began/occurred 2 day(s) ago. Duration: The symptoms are continuous. Modifying factors: The symptoms are alleviated by over the counter medications, Tylenol. Associated signs and symptoms: Pertinent negatives: fever, inability to eat, swelling. Severity of symptoms: in the emergency department the symptoms are actually worse. yes, has been recommended dental extraction. The patient has not recently seen a physician. 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 - Social history:: Smoking status: Patient reports the use of cigarette tobacco products, smokes one-half pack cigarettes per day, Patient uses alcohol, occasionally. Patient/guardian denies using street drugs. ROS: 21:15 Constitutional: Negative for fever, chills, and weight loss. pm1 21:15 Cardiovascular: Negative for chest pain, palpitations, and edema, Respiratory: Negative for shortness of breath, cough, wheezing, and pleuritic chest pain, MS/Extremity: Negative for injury and deformity, Skin: Negative for injury, rash, and discoloration. 21:15 ENT: Positive for dental pain, Negative for ear pain. 21:15 Neck: Positive for swollen nodes. 21:15 All other systems are negative. Exam: 21:15 Constitutional: This is a well developed, well nourished patient who is awake, alert, pm1 and in no acute distress. Head/Face: Normocephalic, atraumatic. 21:15 Skin: Warm, dry with normal turgor. Normal color with no rashes, no lesions, and no evidence of cellulitis. MS/ Extremity: Pulses equal, no cyanosis. Neurovascular intact. Full, normal range of motion. 21:15 ENT: Mouth: negative for trismus, Posterior pharynx: no acute changes, Dental exam: dental caries, specifically in the upper left third molar (#16), lower left third molar (#17) and lower left second molar (#18), Voice: no acute changes. 21:15 Neck: Lymph nodes: lymphadenopathy is appreciated, anterior cervical nodes. 21:15 Neuro: Exam negative for acute changes, Orientation: is normal, Mentation: is normal, Motor: moves all fours. Vital Signs: 20:20 BP 160 / 117; Pulse 72; Resp 18; Temp 98.4(TE); Pulse Ox 98% on R/A; Weight 63.5 kg; ld1 Height 5 ft. 8 in. (172.72 cm); Pain 8/10; 20:29 BP 179 / 118; Pulse 75 RA; Resp 21 S; Pulse Ox 99% on R/A; Weight 63.5 kg (R); Height 5 sv1 ft. 7 in. (170.18 cm) (R); Pain 10/10; 22:12 BP 149 / 100; Pulse 61 MON; Resp 16 S; Pulse Ox 98% on R/A; Pain 5/10; sv1 20:29 Body Mass Index 21.93 (63.50 kg, 170.18 cm) sv1 MDM: 21:11 Patient medically screened. pm1 21:49 Data reviewed: vital signs. Data interpreted: Pulse oximetry: on room air is 99 %. pm1 Interpretation: normal. 21:49 Counseling: I had a detailed discussion with the patient and/or guardian regarding: the pm1 historical points, exam findings, and any diagnostic results supporting the discharge/admit diagnosis, the need for outpatient follow up, for definitive care, a dentist, to return to the emergency department if symptoms worsen or persist or if there are any questions or concerns that arise at home. Administered Medications: 21:20 Drug: [place] (HYDROcodone-acetaminophen) 10 mg-325 mg 1 tabs Route: PO; sv1 22:17 Follow up: Response: No adverse reaction; Pain is decreased sv1 Disposition: 23:25 Co-signature as Attending Physician, Pedro Pablo Ding MD. pk Disposition Summary: 05/06/21 21:51 Discharge Ordered Location: Home pm1 Problem: new pm1 Symptoms: have improved pm1 Condition: Stable pm1 Diagnosis - Dental pain pm1 Followup: pm1 - With: Emergency Department - When: As needed - Reason: Worsening of condition Followup: pm1 - With: Private Physician - When: 2 - 3 days - Reason: Recheck today's complaints, Continuance of care, Re-evaluation by your physician Discharge Instructions: - Discharge Summary Sheet pm1 - Dental Pain pm1 Forms: - Medication Reconciliation Form pm1 - Thank You Letter pm1 - Antibiotic Education pm1 - Prescription Opioid Use pm1 Prescriptions: - Amoxicillin 500 mg Oral Capsule - take 1 capsule by ORAL route every 8 hours for 10 days; 30 tablet; Refills: 0, pm1 Product Selection Permitted - Tylenol-Codeine #3 300 mg-30 mg Oral - take 1 tablet by ORAL route every 6 hours As needed; 12 tablet; Refills: 0, pm1 Product Selection Permitted Signatures: Pedro Pablo Ding MD MD pkl James Bowers NP FAMILY CONSULTANT pm1 Amy Andujar RN RN ld1 Carlos Navarrete RN RN sv1
--- NOTE | 2021-05-06 21:51 | ER ---
Nurse's Notes [facility] Name: Bassam Sharma Age: 26 yrs Sex: Male : 1995 Arrival Date: 05/06/2021 Time: 20:13 Bed 20 Private MD: Diagnosis: Dental pain Presentation: 05/06 20:20 Chief complaint: Patient states: Pt c/o lower left jaw pain. Dentist recommended ld1 pulling two teeth. Coronavirus screen: At this time, the client does not indicate any symptoms associated with coronavirus-19. Ebola Screen: No symptoms or risks identified at this time. Initial Sepsis Screen: Does the patient meet any 2 criteria? No. Patient's initial sepsis screen is negative. Does the patient have a suspected source of infection? No. Patient's initial sepsis screen is negative. Risk Assessment: Do you want to hurt yourself or someone else? Patient reports no desire to harm self or others. Onset of symptoms was May 06, 2021. 20:20 Method Of Arrival: Ambulatory ld1 20:20 Acuity: JENNIFER 4 ld1 Triage Assessment: 20:20 General: Appears in no apparent distress. uncomfortable, Behavior is calm, cooperative, ld1 appropriate for age. 20:20 Pain: Complains of pain in lower left third molar and lower left second molar Pain does ld1 not radiate. Pain currently is 8 out of 10 on a pain scale. Pain began gradually, Is continuous. Neuro: Level of Consciousness is awake, alert, obeys commands, Oriented to person, place, time, situation. Respiratory: Airway is patent Respiratory effort is even, unlabored, Respiratory pattern is regular, symmetrical. 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 - Social history:: Smoking status: Patient reports the use of cigarette tobacco products, smokes one-half pack cigarettes per day, Patient uses alcohol, occasionally. Patient/guardian denies using street drugs. Screenin:31 Abuse screen: Denies threats or abuse. Nutritional screening: No deficits noted. sv1 Tuberculosis screening: No symptoms or risk factors identified. Fall Risk None identified. Vital Signs: 20:20 BP 160 / 117; Pulse 72; Resp 18; Temp 98.4(TE); Pulse Ox 98% on R/A; Weight 63.5 kg; ld1 Height 5 ft. 8 in. (172.72 cm); Pain 8/10; 20:29 BP 179 / 118; Pulse 75 RA; Resp 21 S; Pulse Ox 99% on R/A; Weight 63.5 kg (R); Height 5 sv1 ft. 7 in. (170.18 cm) (R); Pain 10/10; 22:12 BP 149 / 100; Pulse 61 MON; Resp 16 S; Pulse Ox 98% on R/A; Pain 5/10; sv1 20:29 Body Mass Index 21.93 (63.50 kg, 170.18 cm) sv1 ED Course: 20:13 Patient arrived in ED. ja2 20:20 Arm band placed on right wrist. ld1 20:23 Triage completed. ld1 20:24 Carlos Navarrete, JENNIFER is Primary Nurse. sv1 20:31 Patient has correct armband on for positive identification. Bed in low position. Call sv1 light in reach. Side rails up X 1. Adult w/ patient. 20:34 James Bowers NP is PHCP. pm1 20:34 Pedro Pablo Ding MD is Attending Physician. pm1 22:12 No provider procedures requiring assistance completed. sv1 22:14 Patient did not have IV access during this emergency room visit. sv1 Administered Medications: 21:20 Drug: Bangs (HYDROcodone-acetaminophen) 10 mg-325 mg 1 tabs Route: PO; sv1 22:17 Follow up: Response: No adverse reaction; Pain is decreased sv1 Outcome: 21:51 Discharge ordered by . pm1 22:12 Discharged to home ambulatory. sv1 22:12 Condition: good 22:12 Discharge instructions given to patient, family. 22:18 Patient left the ED. sv1 Signatures: James Bowers NP [employer] pm1 Amy Andujar RN RN ld1 Ale Simental [facility] Villicano, Carlos, RN RN sv1
[2021-05-07 04:25] VITALS: TEMP 98.4
[2021-05-07 04:28] VITALS: BP 149/100; O2SAT 98
== END 2021-05-06 22:18 | disposition home or self-care (01) ==
LOC: ER 20:08
DX: K08.89 Other specified disorders of teeth and supporting structures (principal); I10 Essential (primary) hypertension; F17.210 Nicotine dependence, cigarettes, uncomplicated; Z88.8 Allergy status to other drugs, medicaments and biological substances
CPT/HCPCS: 99283

== ENCOUNTER 2021-08-24 20:45 | Emergency (ER) | payer OTHER ==
--- OUTSIDE RECORDS SUMMARY | 2021-08-24 20:48 | XMS REPORT | Continuity of Care Document ---
:1995 Author Organization [facility] t Address [address] [place] [address] Care Team Providers Name Role Phone Pcp, Does Not Have A Primary Care Physician Doctor Unassigned, Name Attending Clinician Unavailable GIORGIO BEVERLY Attending Clinician Unavailable ISAIAH ROSAS Attending Clinician Unavailable Su Mora Attending Clinician BRYAN NGUYEN Admitting Clinician Unavailable Payers Payer Name Policy Type Policy Effective Date Expiration Date Sour ce Number MEDICAID OUT OF [id number] 2018 [facility] 00:00:00 [facility] [id number]/ [facility] 04/2018-PresentMedic aid Problems This patient has no known problems. Allergies, Adverse Reactions, Alerts Allergy Allergy Status Severity Reaction(s) Onset Inactive Treating Comm ents Source Name Type Date Date Clinician METHYLPR Allergy Active High Anaphylaxis [facility] EDJIMMY [address] [place] 00:00: Medical [address] [place] [address] Solu-Med Propensi Active Swelling Univ ers rol ty to 4-15 ity of Mix-O-Vi adverse 00:00: [place] al reaction 00 Medical s Branch NO KNOWN Allergy Active [facility] Social History Social Habit Start Date Stop Date Quantity Comments Source Sex Assigned At [birth year] [facility] 00:00:00 00:00:00 Medical Branch Smoking Status Start Date Stop Date Source Unknown if ever smoked [facility] Medications Ordered Filled Start Stop Current Ordering Indication Dosage Frequency Signature Comments Components Source Medication Medication Date Date Medication? Clinician (SIG) Name Name No known No Univers medications [facility] Vital Signs Vital Name Observation Time Observation Value Comments Source HEIGHT 2020-11-20 10:34:00 172.7 cm WEIGHT 2020-11-20 10:34:00 63.504 kg HEIGHT 2020-11-20 10:34:00 172.7 cm WEIGHT 2020-11-20 10:34:00 63.504 kg HEIGHT 2020-11-17 09:00:00 172.7 cm HEIGHT 2020-11-17 09:00:00 172.7 cm Procedures Procedure Date / Time Performed Performing Clinician Sourc e EXTERNAL PROVIDER - 2020-11-28 05:01:00 Doctor Unassigned, No Un [facility] REFERRAL Name [facility] Encounters Start End Encounter Admission Attending Care Care Encounter Source Date/Time Date/Time Type Type Clinicians Facility Department ID 2020-11-28 2020-11-28 Orders Doctor DORAN [id number] Univers 00:00:00 00:00:00 Only UnassignedPAWEL 350.1.13.10 ity [place] [facility] 4.2.7.2.686 Eric as [id number] [address] 2020-11-20 2020-11-20 [facility] [id number] [facility] 00:00:00 23:59:00 Alvaro Medicin e 2020-11-20 2020-11-20 Emergency ER [facility] Emergency [id number] SLE 10:22:00 10:22:00 2020-11-15 2020-11-15 Emergency ER [facility] Emergency [id number] SLE 20:42:00 20:42:00 2019-05-28 2019-05-28 Emergency Marielena Giordano [facility] [id number] 16:54:20 18:00:00 [place] 350.1.13.10 [place] 4.2.7.2.686 [place] [id number] 2019-05-28 2019-05-28 Orders Doctor DORAN [id number] 00:00:00 00:00:00 Only UnassignedPAWEL 350.1.13.10 [facility] 4.2.7.2.686 [id number] Results Test Description Test Time Test Comments Results Result Comments Source HIV 1/2 4TH GEN, RFLX CONF 2021-06-05 04:36:58 Test Item Value Reference Range Interpretation Comme nts HIV 1/2 4TH GEN, RFLX NON-REACTIVE NON-REACTIVE UNLESS OTHERWISE CONF (test code = 3514) SAMIA CATED, ALL TESTING PERFORMED ATCLINICAL PATH OLOGY LABORATORIES, [facility]. [address] [place], [place] [address] LABORATORY DIRE CTOR: MÓNICA HERNANDEZ M.D. CLIA NUMBER [id number] [facility] [place]. [id number] COMPREHENSIVE METABOLIC [id number] 19:14:19 Test Item Value Reference Range Interpretation Comments GLUCOSE (test code = 95 MG/DL 70-99 2216) BUN (test code = 14 MG/DL 6-20 2207) CREATININE (test 1.75 MG/DL 0.80-1.40 H code = 2214) eGFR (2020 CKD-EPI) 54 ML/MIN/1.73 >60 L (test code = 10743) CALC BUN/CREAT (test 8 RATIO 6-28 code = 2235) SODIUM (test code = 138 MEQ/L 067-011 5562) POTASSIUM (test code 4.7 MEQ/L 3.5-5.4 HEMOLYTIC = 2228) INTERFERENCE DETECTED; RESUL TS MAY BE AFFECTED CHLORIDE (test code 107 MEQ/L 95-107 = 2215) CARBON DIOXIDE (test 19 MEQ/L 19-31 code = 2206) CALCIUM (test code = 9.5 MG/DL 8.5-10.5 2208) PROTEIN, TOTAL (test 6.8 G/DL 6.1-8.3 code = 2229) ALBUMIN (test code = 4.1 G/DL 3.5-5.2 2200) CALC GLOBULIN (test 2.7 G/DL 1.9-3.7 code = 2240) CALC A/G RATIO (test 1.5 RATIO 1.0-2.6 code = 2234) BILIRUBIN, TOTAL 0.2 MG/DL See_Comment [Automated message] (test code = 2207) The syste m which generated this result transmit rey reference range : <=1.2. The refe rence range was not u sed to interpret th is result as normal/abnormal . ALKALINE PHOSPHATASE 132 U/L 40-115 H (test code = 2203) AST (test code = 51 U/L 9-50 H 2217) ALT (test code = 25 U/L 5-50 2218) LIPID [id number] 19:14:19 Test Item Value Reference Range Interpretation Comments CHOLESTEROL (test 161 MG/DL <200 code = 2210) TRIGLYCERIDES (test 106 MG/DL <150 code = 2232) HDL CHOLESTEROL (test 47 MG/DL >39 code = 2220) CALC LDL CHOL (test 94 MG/DL <100 NOTE: C ALCULATED LDL code = 2237) IS BASED ON JESSICA-MORENO METHOD WHICHINCLUDES ADJUSTABLE TRIGLYCERIDE:VL DL CHOLESTEROL RAT IO.THIS FACTOR VARIES B Y MEASURED TRIGLY CERIDE AND NON-HDLCHOL ESTEROL CONCENTRATIONS WITH INCREASED CALCU LATED LDL SEENIN HIGH ER TRIGLYCERIDE OR LOWER NON-HDL SPECIME NS. FOR MOREINFORMATION , SEE CLIENT ANNOUNCE MENT AT [email or web address] RISK RATIO LDL/HDL 2.00 RATIO <3.55 (test code = 2237) TSH, THIRD [id number] 02:16:38 Test Item Value Reference Range Interpretation Comments TSH, THIRD GENERATION (test code 0.566 UIU/ML 0.400-4.100 = 2821) HEMOGLOBIN [id number] 03:15:34 Test Item Value Reference Range Interpretation Comments HEMOGLOBIN A1c (test code = 59954) 5.2 % 4.2-5.6 CBC W/AUTO DIFF WITH [id number] 02:45:00 Test Item Value Reference Range Interpretation Comments WBC (test code = 7.1 K/UL 3.5-11.0 1001) RBC (test code = 4.74 M/UL 4.50-6.10 1002) HEMOGLOBIN (test code 14.3 G/DL 13.5-17.0 = 1003) HEMATOCRIT (test code 42.3 % 40.0-51.0 = 1004) MCV (test code = 89.2 fL 80.0-99.0 1005) MCH (test code = 30.2 PG 25.0-33.0 1006) MCHC (test code = 33.8 G/DL 31.0-36.0 1007) RDW (test code = 12.7 % 11.5-15.0 1038) NEUTROPHILS (test 62.9 % code = 1008) LYMPHOCYTES (test 25.8 % code = 1010) MONOCYTES (test code 5.1 % = 1011) EOSINOPHILS (test 4.6 % code = 1012) BASOPHILS (test code 1.5 % = 1013) IMMATURE GRANULOCYTES 0.1 % (test code = 1036) NUCLEATED RBCS (test 0.0 /100 See_Comment [Autom ated code = 1065) WBC'S message] The sy stem which generated this result transmitted reference range : 0.0. The refere nce range was not u sed to interpret th is result as normal/abnormal . PLATELET COUNT (test 244 K/UL 130-400 code = 1015) ABSOLUTE NEUTROPHILS 4.46 K/UL 1.50-7.50 (test code = 1066) ABSOLUTE LYMPHOCYTES 1.83 K/UL 1.00-4.00 (test code = 1067) ABSOLUTE MONOCYTES 0.36 K/UL 0.20-1.00 (test code = 1068) ABSOLUTE EOSINOPHILS 0.33 K/UL 0.00-0.50 (test code = 1040) ABSOLUTE BASOPHILS 0.11 K/UL 0.00-0.20 (test code = 1069) ABS IMMATURE 0.01 K/UL 0.00-0.10 GRANULOCYTES (test code = 1020) ABS NUCLEATED RBCS 0.00 K/UL 0.00-0.11 (test code = 73404) SARS-CoV-2 (COVID-19), RT-PCR/[id number] 15:37:11 Test Item Value Reference Interpretation Comments Range SARS-CoV-2 NEGATIVE SEE NOTE SARS-CoV-2 RNA NOT INTERPRETATION DETECTEDNegat mark (test code = 23362) results do not preclude SARS-CoV-2 infe ction and should notb e used as the sole bas is for patient managem ent decisions. Negativeresults must be combined with c linical observations, p atient history,and epidemiological information. Op timum specimen types and timingfor peak viral levels during infections caus ed by SARS-CoV-2 have notbeen determined. Col lection of multiple spe cimens or types ofspec imens may be necessar y to detect virus. I mproper specimencollect ion and handling, seque nce variability und er primers/probes, or organism presen t below the limit of de tection may lead to falsenegative r esults. Positive and ne gative predictive valu es oftesting are h ighly dependent on prevalence. Fal se negative testre sults are more likely when prevalence is h igh. SOURCE (test code = NOT SPECIFIED Note: [place] [address]) Stephen Shae Lori l-Time RT-PCR. The exp ected result or ref erence range is NEGATI VE (Not Detected). For more information reg arding COVID-19 testin g to include clinicalinforma tion, methodology det ail, intended use, F DA authorization andrecommended fact sheets for alireza ents or healthcare prov iders, see NewTest Announcement: SARS-CoV-2 (COV ID-19) by NAAT at URL below (note,fact shee ts are provided by met hod given in report:https:// www.viVoodcom/clinici ans/clie nt-communicatio ns/ Alternatively, see downloadable PD F fact sheet at:https://www. SilMach/COVID-19-RT -PCR UNLESS OTHERW ISE INDICATED, ALL TESTING PERFORMED [facility] NICCT PATHOLOGY LABOR [facility] [address] [place] [address] 4 LABORATORY DI SANJAY: Aurora KWONG [id number] CAP ACCREDITATION N O. [id number] ANG, VISCERAL [id number] 10:03:00Reason for exam:->bleeding mesenteric arteryHERRICK CAMPUSName: LANAARIAS MILO : 1995 Sex: MFINAL REPORT PROCEDURE: Mesenteric and left renal angiography Procedural PersonnelAttending physician(s): Genesis Tate physician(s): NoneResident physician(s): NoneAdvanced practice provider(s): None Pre-procedure diagnosis: Hemoperitoneum, spontaneous intraabdominal hemorrhagePost-procedure diagnosis: SameIndication: Spontaneous intraabdominal arterial hemorrhage Additional clinical history: Spontaneous intraabdominal hemorrhage with positive brisk arterial contrast extravasation on outside hospital CTA. Complications: No immediate complications. IMPRESSION: Angiography of the celiac artery, splenic artery, hepatic artery, SMA, left renal artery, and inferior phrenic artery demonstrates patent vessels of normal caliber without stenosis, aneurysm, dissection, or free extravasation of contrast. No embolization was performed. Plan: Right leg straight strict bedrest x 4 hours as ordered.Trend H\T\H and [...] maximal sterile barrier technique including cutaneous antisepsis. An esthesia/sedationLevel of anesthesia/sedation: No sedation (IV fentanyl for pain and 1% lidocaine)Anesthesia/sedation administered by: Independent trained observer under attending [...] description of procedure: NoneEquipment details: NoneSpecimens removed: NoneEstimatedblood loss (mL): Less than 10Standardized report: SIR_AngioMesenteric_v3 AttestationSigner name: Andrea Aguilar attest that I was present for the entire procedure. I reviewed the stored images and agree with the report as written. Signed: Jammie Mcknight MDReport Verified Date/Time: 11/22/2020 10:03:30 HIGH SENSITIVITY TROPONIN [id number] 19:01:00 Test Item Value Reference Range Interpretation Comments HIGH SENSITIVITY 6 pg/ml See_Comment [Automated message] TROPONIN I (test code = The system which [id number]) generated this result transmitted ref erence range: <=35. Th e reference range was not used to interpr et this result as normal/abnormal . Manufacturing Maintenance Manager ID - DBThe CONDUCTOR ORCHESTRA STAT High Sensitivity Troponin-I results should be used in conjunctionwith other diagnostic information such as ECG, clinical observations and information, and patient symptoms to aid in the diagnosis of [place].CT, CTA, [id number] 14:24:00Unlisted Reason for Exam - Click Yes and Enter Reason Below->No [facility] CENTERName: ARIAS SCHWARTZ : 1995 Sex: MFINAL [...] examination of the chest. Signed: Dimple Langford MDReport Verified Date/Time: 11/20/2020 14:24:52 Reading Location: [address] Body Reading Room -[id number] 12:11:00 Test Item Value Reference Range Interpretation [...] < pg/mL 0-100 (test code = 700) Manufacturing Maintenance Manager ID Maggi SINGH FHIGH SENSITIVITY TROPONIN [id number] 11:53:00 Test Item Value Reference Range Interpretation Comments HIGH SENSITIVITY 6 pg/ml See_Comment [Automated message] TROPONIN I (test code = The system which [id number]) generated this result transmitted ref erence range: <=35. Th e reference range was not used to interpr et this result as normal/abnormal . Manufacturing Maintenance Manager ID Maggi FRANCISCO FThe CONDUCTOR ORCHESTRA STAT High Sensitivity Troponin-I results should be used in conjunction with other diagnostic information such as ECG, clinical observations and information, and patient symptoms to aid in the diagnosis of AZ.[id number] 11:48:00 Test Item Value Reference Range Interpretation Comments MAGNESIUM (BEAKER) (test code = 1.9 mg/dL 1.6-2.6 627) Manufacturing Maintenance Manager ID Maggi SINGH FCOMPREHENSIVE METABOLIC [id number] 11:48:00 Test Item Value Reference Range Interpretation [...] GFR I S NOT APPLICABLE FOR DIALYSIS PATIDIAZ TS. Manufacturing Maintenance Manager ID - FRANCISCO [id number] 11:48:00 Test Item Value Reference Range Interpretation Comments PHOSPHORUS (BEAKER) (test code = 2.8 mg/dL 2.3-4.7 604) Manufacturing Maintenance Manager ID Maggi SINGH FPROTHROMBIN [id number] 11:37:00 Test Item Value Reference Range Interpretation Comments PROTIME (BEAKER) 13.1 seconds 11.9-14.2 (test code = 759) INR (BEAKER) (test 1.01 See_Comment [Automat ed message] code = 370) The system [employer] generated this result transmitted ref erence range: [...] 0-1 PERCENT (BEAKER) (test code = 2801) BASIC METABOLIC [id number] 04:58:00 Test Item Value Reference Range Interpretation [...] S NOT APPLICABLE FOR DIALYSIS PATIEN TS. Manufacturing Maintenance Manager ID - JORDAN [id number] 04:58:00 Test Item Value Reference Range Interpretation Comments MAGNESIUM (BEAKER) (test code = 2.2 mg/dL 1.6-2.6 627) Manufacturing Maintenance Manager ID - JORDAN [id number] 04:58:00 Test Item Value Reference Range Interpretation Comments PHOSPHORUS (BEAKER) (test code = 2.9 mg/dL 2.3-4.7 604) Manufacturing Maintenance Manager ID - JORDAN MCBC W/PLT COUNT & AUTO [id number] 04:45:00 Test Item Value Reference Range Interpretation [...] code = 2801) RAD, ABDOMEN/KUB, 1 VIEW [id number] 18:55:00Reason for exam:->nausea [facility]AMPUSName: ARIAS SCHWARTZ : 1995 Sex: MFINAL REPORT TECHNIQUE: Single View of the Abdomen. INDICATION: nausea. COMPARISON: CT from 11/15/2020. FINDINGS/IMPRESSION: The bowel gas pattern is normal. No abnormal calcifications. No acute bone abnormality. Small right pleural effusion with right basilar atelectasis.Signed: Mark Crump MDReport Verified Date/Time: 11/17/2020 18:55:53 Reading Location: [address] Consult Reading Room BASI METABOLIC [id number] 11:39:00 Test Item Value Reference Range Interpretation [...] S NOT APPLICABLE FOR DIALYSIS PATIEN TS. Manufacturing Maintenance Manager ID - RADHA MCBC W/PLT COUNT & AUTO [id number] 03:36:00 Test Item Value Reference Range Interpretation [...] 0-1 PERCENT (BEAKER) (test code = 2801) BASIC METABOLIC [id number] 03:17:00 Test Item Value Reference Range Interpretation [...] S NOT APPLICABLE FOR DIALYSIS PATIEN TS. Manufacturing Maintenance Manager ID - BSHEPATIC FUNCTION [id number] 03:17:00 Test Item Value Reference Range Interpretation [...] Specimen slightly (test code = 347) hemolyzed Manufacturing Maintenance Manager ID - [id number] 03:17:00 Test Item Value Reference Range Interpretation Comments MAGNESIUM (BEAKER) 1.6 mg/dL 1.6-2.6 Specimen slightly (test code = 627) hemolyzed Manufacturing Maintenance Manager ID - [id number] 03:17:00 Test Item Value Reference Range Interpretation Comments PHOSPHORUS (BEAKER) 2.8 mg/dL 2.3-4.7 Specimen slightly (test code = 604) hemolyzed Manufacturing Maintenance Manager ID - BSBASIC METABOLIC [id number] 18:29:00 Test Item Value Reference Range Interpretation [...] S NOT APPLICABLE FOR DIALYSIS PATIEN TS. Manufacturing Maintenance Manager ID - BSLACTIC ACID, [id number] 18:21:00 Test Item Value Reference Range Interpretation Comments LACTATE BLOOD VENOUS (2) (BEAKER) 2.18 mmol/L 0.50-2.20 (test code = 2872) Manufacturing Maintenance Manager ID - BSCBC W/PLT COUNT & AUTO [id number] 18:14:00 Test Item Value Reference Range Interpretation [...] PERCENT (BEAKER) (test code = 2801) POCT-GLUCOSE [id number] 16:32:00 Test Item Value Reference Range Interpretation Comments POC-GLUCOSE METER 113 mg/dL 70-110 H : TESTED A [facility] 6720 (BEAKER) (test code = [place], 1538) [address]: Manufacturing Maintenance Manager/Techni burt ID = [id number] for [employer] (contract), Boo lisandro [id number] 14:44:00 Test Item Value Reference Range Interpretation Comments FERRITIN (BEAKER) (test code = 249.19 ng/mL 5.00-275.00 361) Manufacturing Maintenance Manager ID - JORDAN MCOMPLEMENT COMPONENT [id number] 14:01:00 Test Item Value Reference Range Interpretation Comments C4 COMPLEMENT (BEAKER) (test code = 26 mg/dL 15-57 394) Manufacturing Maintenance Manager ID - JORDAN MCOMPLEMENT COMPONENT [id number] 14:01:00 Test Item Value Reference Range Interpretation Comments C3 COMPLEMENT (BEAKER) (test code = 92 mg/dL 82-193 393) Manufacturing Maintenance Manager ID - JORDAN RACHEL, TIBC, % SAT. (WITHOUT FERRITIN)2020-11-16 14:01:00 Test Item Value Reference Range Interpretation Comments IRON (BEAKER) (test code = 547) 123.0 ug/dL 40.0-160.0 TOTAL IRON BINDING CAPACITY 221 ug/dL 250-450 L (BEAKER) (test code = 769) IRON % SATURATION (2) (BEAKER) 56 % 20-55 H (test code = 2590) Manufacturing Maintenance Manager ID - JORDAN MBASIC METABOLIC [id number] 14:00:00 Test Item Value Reference Range Interpretation [...] S NOT APPLICABLE FOR DIALYSIS PATIEN TS. Manufacturing Maintenance Manager ID - JORDAN MLACTIC ACID, [id number] 13:56:00 Test Item Value Reference Range Interpretation Comments LACTATE BLOOD VENOUS (2) (BEAKER) 2.29 mmol/L 0.50-2.20 H (test code = 2872) Manufacturing Maintenance Manager ID - JORDAN MCBC W/PLT COUNT & AUTO [id number] 13:34:00 Test Item Value Reference Range Interpretation [...] PERCENT (BEAKER) (test code = 2801) HEMOGLOBIN [id number] 12:16:00 Test Item Value Reference Range Interpretation Comments HEMOGLOBIN A1C (DAIANA) (test code = 5.2 % 4.3-6.1 368) U/S, RENAL, [id number] 12:07:00Reason for exam:->DANIEL eval hydronephrosisHERRICK CAMPUSName: ARIAS SCHWARTZ : 1995 Sex: MFINAL REPORT [...] MDReport Verified Date/Time: 11/16/2020 12:07:09 CREATININE, RANDOM [id number] 11:39:00 Test Item Value Reference Range Interpretation Comments CREATININE URINE (BEAKER) (test 87.6 mg/dL code = 375) Reference Range: No NormalsOperator ID - JORDAN MSODIUM, RANDOM [id number] 11:39:00 Test Item Value Reference Range Interpretation Comments SODIUM URINE (BEAKER) (test code = 25 meq/L 243) Reference Range: No NormalsOperator ID - JORDAN MPOCT-GLUCOSE [id number] 11:27:00 Test Item Value Reference Range Interpretation Comments POC-GLUCOSE METER 154 mg/dL 70-110 H : TESTED A T [facility] 6720 (BEAKER) (test code = BR[facility] [place], 1538) [address]: Manufacturing Maintenance Manager/Techni burt ID = [id number] for [employer] (contract) Boo mcmahon URINALYSIS W/ [id number] 11:24:00 Test Item Value Reference Range Interpretation [...] code = 1521) SOURCE(BEAKER) (test code = 2795) Manufacturing Maintenance Manager ID - [auto]Manufacturing Maintenance Manager ID - techBASIC METABOLIC [id number] 09:21:00 Test Item Value Reference Range Interpretation [...] S NOT APPLICABLE FOR DIALYSIS PATIEN TS. Manufacturing Maintenance Manager ID - JORDAN MCREATINE KINASE (CK)2020-11-16 08:40:00 Test Item Value Reference Range Interpretation Comments CREATINE KINASE TOTAL (BEAKER) (test 83 U/L 29-200 code = 380) Manufacturing Maintenance Manager ID - JORDAN MCBC W/PLT COUNT & AUTO [id number] 07:31:00 Test Item Value Reference Range Interpretation [...] K/ L 0.01-0.08 (test code = 417) [id number] 04:39:00 Test Item Value Reference Range Interpretation Comments MAGNESIUM (BEAKER) 1.8 mg/dL 1.6-2.6 Specimen slightly (test code = 627) hemolyzed Manufacturing Maintenance Manager ID - JORDAN [id number] 04:39:00 Test Item Value Reference Range Interpretation Comments PHOSPHORUS (BEAKER) 4.2 mg/dL 2.3-4.7 Specimen slightly (test code = 604) hemolyzed Manufacturing Maintenance Manager ID - JORDAN MBASIC METABOLIC [id number] 04:39:00 Test Item Value Reference Range Interpretation [...] S NOT APPLICABLE FOR DIALYSIS PATIEN TS. Manufacturing Maintenance Manager ID - JORDAN MHEPATIC FUNCTION [id number] 04:39:00 Test Item Value Reference Range Interpretation [...] Specimen slightly (test code = 347) hemolyzed Manufacturing Maintenance Manager ID - JORDAN MPROTHROMBIN [id number] 04:38:00 Test Item Value Reference Range Interpretation Comments PROTIME (BEAKER) 13.5 seconds 11.9-14.2 (test code = 759) INR (BEAKER) (test 1.05 See_Comment [Automat ed message] code = 370) The system [employer] generated this result transmitted ref erence range: <=5.90. The reference range was not used to int erpret this result as normal/abnormal . RECOMMENDED COUMADIN/WARFARIN INR THERAPY RANGESSTANDARD DOSE: 2.0 - 3.0 Includes: PROPHYLAXIS forvenous thrombosis, systemic embolization; TREATMENT for venous thrombosis and/or pulmonary embolus.HIGH RISK: Target INR is 2.5-3.5 for patients with mechanical heart valves.[id number] 04:38:00 Test Item Value Reference Range Interpretation Comments FIBRINOGEN LEVEL (BEAKER) (test 349 mg/dl 225-434 code = 658) [id number] 04:38:00 Test Item Value Reference Range Interpretation Comments PARTIAL THROMBOPLASTIN TIME 25.7 seconds 22.5-36.0 (BEAKER) (test code = 760) POCT-GLUCOSE [id number] 00:46:00 Test Item Value Reference Range Interpretation Comments POC-GLUCOSE METER 138 mg/dL 70-110 H : TESTED A T [facility] 6720 (BEAKER) (test code = [place] [facility], 1538) [address]: Manufacturing Maintenance Manager/Techni burt ID = [id number] for [facility] [employer]E COMPREHENSIVE METABOLIC [id number] 21:52:00 Test Item Value Reference Range Interpretation [...] S NOT APPLICABLE FOR DIALYSIS PATIEN TS. Manufacturing Maintenance Manager ID - [id number] 21:51:00 Test Item Value Reference Range Interpretation [...] % 0-1 PERCENT (BEAKER) (test code = 4301)
--- NOTE | 2021-08-24 22:02 | RAD REPORT ---
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 No acute fracture o r dislocation seen.
--- NOTE | 2021-08-24 22:18 | ER ---
Nurse's Notes [facility] Name: Bassam Sharma Age: 26 yrs Sex: Male : 1995 Arrival Date: 08/24/2021 Time: 20:48 Bed 20 Private MD: Diagnosis: Right index finger swelling;right index finger pain;right index finger crush injury Presentation: 08/24 21:14 Chief complaint: Patient states: " I was paying attention to my son and I think I vc1 slammed my hand in the car door.". Coronavirus screen: Vaccine status: Patient reports being unvaccinated. Ebola Screen: No symptoms or risks identified at this time. Initial Sepsis Screen: Does the patient meet any 2 criteria? No. Patient's initial sepsis screen is negative. Does the patient have a suspected source of infection? No. Patient's initial sepsis screen is negative. Risk Assessment: Do you want to hurt yourself or someone else? Patient reports no desire to harm self or others. Onset of symptoms was August 24, 2021 at 18:00. 21:14 Method Of Arrival: Ambulatory vc1 21:14 Acuity: JENNIFER 3 vc1 Triage Assessment: 21:46 General: Appears in no apparent distress. Behavior is calm, cooperative. Injury robert Description: Crush injury sustained to right hand. 21:46 Pain: Denies pain. 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 - Social history:: Smoking status: Patient reports the use of cigarette tobacco products, 3-4 cigarettes a day. Screenin:46 Abuse screen: Denies threats or abuse. Denies injuries from another. Nutritional robert screening: No deficits noted. Tuberculosis screening: No symptoms or risk factors identified. Fall Risk None identified. Assessment: 21:25 Reassessment: I recv'd the pt to room #20 at this time. robert 21:44 Reassessment: x-ray is at bedside performing the exam. The pt's right hand is swollen, robret but no break in the skin is noted. The pt is stoic and denies any pain, at this time. Musculoskeletal: Swelling present in right hand. 22:38 Reassessment: The pt was given an ice pack and medication. Surprisingly, it was not robert fractured. The pt is having his drive, given that he took the pain medication. Vital Signs: 21:14 BP 176 / 129; Pulse 75; Resp 18; Temp 99.2; Pulse Ox 100% ; Weight 65.77 kg; Height 5 vc1 ft. 7 in. (170.18 cm); Pain 6/10; 22:31 BP 172 / 99; Pulse 78; Resp 16; Temp 98.3; Pulse Ox 100% on R/A; Pain 3/10; robert 21:14 Body Mass Index 22.71 (65.77 kg, 170.18 cm) vc1 ED Course: 20:48 Patient arrived in ED. bp1 21:00 Ezequiel Kumar DO is Attending Physician. ms3 21:19 Triage completed. vc1 21:19 Arm band placed on left wrist. vc1 21:25 Zehra Davis, JENNIFER is Primary Nurse. robert 21:46 Bed in low position. Call light in reach. Adult w/ patient. robert 21:46 No provider procedures requiring assistance completed. robert 21:53 Hand Right 3 View XRAY In Process Unspecified. EDMS 22:13 Mark Uriostegui MD is Referral Physician. ms3 22:39 Patient did not have IV access during this emergency room visit. robert Administered Medications: 22:31 Drug: HYDROcodone-acetaminophen 5 mg-325 mg 1 tabs Route: PO; robert Medication: 21:47 VIS not applicable for this client. robert Outcome: 21:46 Condition: stable robert 22:17 Discharge ordered by . ms3 22:39 Discharged to home ambulatory, with family. robert 22:39 Discharge instructions given to patient, Instructed on discharge instructions, follow robert up and referral plans. Demonstrated understanding of instructions, follow-up care. 22:39 Patient left the ED. robert Signatures: Dispatcher [employer] EDMS Ezequiel Kumar DO DO ms3 Shayy Mcpherson bp1 Zehra Davis RN RN robert Calcote, Carli, RN RN vc1
--- NOTE | 2021-08-24 22:18 | EDPHYS ---
Physician Documentation [facility] Name: Bassam Sharma Age: 26 yrs Sex: Male : 1995 Arrival Date: 08/24/2021 Time: 20:48 Bed 20 Private MD: ED Physician Ezequiel Kumar HPI: 08/24 21:11 This 26 yrs old Male presents to ER via Unassigned with complaints of Hand ms3 Injury. 21:11 The patient or guardian reports injury, pain. The complaints affect the right hand ms3 diffusely. Context:. Onset: The symptoms/episode began/occurred 4 hour(s) ago. Modifying factors: The symptoms are alleviated by nothing, the symptoms are aggravated by movement, dependent position. Associated signs and symptoms: The patient has no apparent associated signs or symptoms. Severity of symptoms: At their worst the symptoms were moderate, in the emergency department the symptoms are unchanged, a " 6" out of "10". 26-year-old male with past medical history of kidney failure presents for right hand pain status post striking his right index finger with a hammer. Patient states his pain is a 6/10 and described as throbbing. Patient states this occurred 4 hours prior to arrival. Patient states pain is worse with his hand in the dependent position or movement of his finger. Patient denies alleviating factors. 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 - Social history:: Smoking status: Patient reports the use of cigarette tobacco products, 3-4 cigarettes a day. ROS: 21:11 Constitutional: Negative for fever, and chills. Cardiovascular: Negative for chest ms3 pain, and palpitations. Respiratory: Negative for shortness of breath, cough, wheezing, and pleuritic chest pain, Abdomen/GI: Negative for abdominal pain, nausea, vomiting, diarrhea, and constipation, Skin: Negative for injury, rash, and discoloration. 21:11 MS/extremity: Positive for pain, swelling, tenderness. 21:11 All other systems are negative. Exam: 21:11 Constitutional: This is a well developed, well nourished patient who is awake, alert, ms3 and in no acute distress. Head/Face: Normocephalic, atraumatic. Chest/axilla: Normal chest wall appearance and motion. Nontender with no deformity. Cardiovascular: Regular rate and rhythm with a normal S1 and S2. No gallops, murmurs, or rubs. Normal PMI, no JVD. No pulse deficits. Respiratory: Lungs have equal breath sounds bilaterally, clear to auscultation and percussion. No rales, rhonchi or wheezes noted. No increased work of breathing, no retractions or nasal flaring. Abdomen/GI: Soft, non-tender, with normal bowel sounds. No distension or tympany. No guarding or rebound. No evidence of tenderness throughout. Skin: Warm, dry with normal turgor. Normal color with no rashes, no lesions, and no evidence of cellulitis. Psych: Awake, alert, with orientation to person, place and time. Behavior, mood, and affect are within normal limits. 21:11 Musculoskeletal/extremity: Extremities: noted in the dorsal aspect of middle phalanx of right index finger and dorsal aspect of proximal phalanx of right index finger: pain, swelling, tenderness. Vital Signs: 21:14 BP 176 / 129; Pulse 75; Resp 18; Temp 99.2; Pulse Ox 100% ; Weight 65.77 kg; Height 5 vc1 ft. 7 in. (170.18 cm); Pain 6/10; 22:31 BP 172 / 99; Pulse 78; Resp 16; Temp 98.3; Pulse Ox 100% on R/A; Pain 3/10; robert 21:14 Body Mass Index 22.71 (65.77 kg, 170.18 cm) vc1 MDM: 21:11 Differential diagnosis: closed fracture, contusion. ms3 21:25 Patient medically screened. ms3 08/25 03:52 Data reviewed: vital signs, nurses notes, radiologic studies, plain films. Counseling: ms3 I had a detailed discussion with the patient and/or guardian regarding: the historical points, exam findings, and any diagnostic results supporting the discharge/admit diagnosis, radiology results, the need for outpatient follow up, to return to the emergency department if symptoms worsen or persist or if there are any questions or concerns that arise at home. 08/24 21:11 Order name: Hand Right 3 View XRAY; Complete Time: 22:13 ms3 Administered Medications: 08/24 22:31 Drug: HYDROcodone-acetaminophen 5 mg-325 mg 1 tabs Route: PO; robert Disposition Summary: 08/24/21 22:17 Discharge Ordered Location: Home ms3 Condition: Stable ms3 Diagnosis - Right index finger swelling ms3 - right index finger pain ms3 - right index finger crush injury ms3 Followup: ms3 - With: Mark Uriostegui MD - When: 2 - 3 days - Reason: Recheck today's complaints Discharge Instructions: - Discharge Summary Sheet ms3 - Musculoskeletal Pain ms3 Forms: - Medication Reconciliation Form ms3 - Thank You Letter ms3 - Antibiotic Education ms3 - Prescription Opioid Use ms3 Signatures: Dispatcher [employer] EDEzequiel Ochoa DO DO ms3 Zehra Davis, RN RN Carli Cano RN RN vc1
[2021-08-24] MEDS ORDERED: HYDROCODONE/APAP 5/325 MG TAB ONE (22:31)
[2021-08-25 14:57] VITALS: O2SAT 100
[2021-08-25 14:58] VITALS: BP 172/99; TEMP 98.3
== END 2021-08-24 22:39 | disposition home or self-care (01) ==
LOC: ER 20:45
DX: S67.190A Crushing injury of right index finger, initial encounter (principal); X58.XXXA Exposure to other specified factors, initial encounter; I12.9 Hypertensive chronic kidney disease with stage 1 through stage 4 chronic kidney disease, or unspecified chronic kidney disease; N18.9 Chronic kidney disease, unspecified; F17.210 Nicotine dependence, cigarettes, uncomplicated; Z88.4 Allergy status to anesthetic agent
CPT/HCPCS: 99283

== ENCOUNTER 2022-12-31 17:37 | Emergency (ER) | payer SELFPAY ==
--- OUTSIDE RECORDS SUMMARY | 2022-12-31 18:04 | XMS REPORT | Continuity of Care Document ---
:1995 [facility] t Address [address] [facility] [address] [place] [address] Care Team Providers Name Role Phone Pcp, Patient Does Not Have A Primary Care Physician [id number] Doctor Unassigned, [place] Attending Clinician Unavailable ANA BEVERLY Attending Clinician Unavailable KRAIG ROSAS Attending Clinician Unavailable Marielena Mora Attending Clinician HEATHER NGUYEN Admitting Clinician Unavailable Payers Payer Name Policy Type Policy Effective Date Expiration Date Sour ce Number MEDICAID OUT OF [id number] 2018 [facility] 00:00:00 [facility] [id number]/ [facility] 04/2018-PresentMedic aid Problems Condition Condition Condition Status Onset Resolution Last Treating Co mments Source Name Details Category Date Date Treatment Clinician Date Essential Essential Disease Recurre [facility] hypertensi hypertensi nce 11-16 [facility] kes on on 00:00: Medical 00 [place] Internal Internal Disease [facility] H/O H/O Disease Recurre [facility] Goodpastur nce 11-15 Lu[facility] kes e's e's 00:00: Medical syndrome syndrome 00 Center Generalize Generalize Disease Active [facility]15 [facility] abdominal abdominal 00:00: 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 00 Center Allergies, Adverse Reactions, Alerts Allergy Allergy Status Severity Reaction(s) Onset Inactive Treating Comm ents Source Name Type Date Date Clinician Methylpr Propensi Active Anaphylaxis [facility] ednisolo ty to 8 [facility] ne adverse 00:00: Medical reaction 00 Center s METHYLPR Allergy Active High Anaphylaxis [facility] EDNISOLO 11-15 [facility] [place] 00:00: Medical 00 Center Solu-Med Propensi Active Swelling Univ ers rol ty to 4-15 ity of Mix-O-Vi adverse 00:00: [place] al reaction 00 [facility] NO KNOWN Allergy Active [facility] Social History Social Habit Start Date Stop Date Quantity Comments Source History SDOH [facility] Alcohol Std Drinks [facility] History SDOH [facility] Alcohol Binge [facility] Tobacco use and 2020-11-20 2020-11-[address] [facility] exposure 00:00:00 00:00:00 non-user [facility] Alcohol intake 2020-11-20 2020-11-[address] [facility] es 00:00:00 00:00:00 non-drinker Medical Cente r (finding) History SDOH 2020-11-20 2020-11-[address] [facility] Alcohol Frequency 00:00:00 00:00:00 [facility] Sex Assigned At [address] Lucrecia kes 00:00:00 00:00:00 Medical [place] Smoking Status Start Date Stop Date Source Unknown if ever smoked [facility] Never smoked tobacco [facility] Medications Ordered Filled Start Stop Current Ordering Indication Dosage Frequency Signature Comments Components Source Medication Medication Date Date Medication? Clinician (SIG) Name Name No known No Univers medications [facility] Vital Signs Vital Name Observation Time Observation Value Comments Source HEIGHT 2020-11-20 10:34:00 172.7 cm WEIGHT 2020-11-20 10:34:00 63.504 kg HEIGHT 2020-11-20 10:34:00 172.7 cm WEIGHT 2020-11-20 10:34:00 63.504 kg HEIGHT 2020-11-17 09:00:00 172.7 cm HEIGHT 2020-11-17 09:00:00 172.7 cm Procedures Procedure Date / Time Performed Performing Clinician Sourc e EXTERNAL PROVIDER - 2020-11-28 05:01:00 Doctor Unassigned, [facility] Plan of Care Planned Activity Planned Date Details Comments Source Future Scheduled 2022-12-13 Influenza Vaccine (#1) [facility] 00:00:00 [code = Influenza Vaccine Me dical Center (#1)] Future Scheduled 2022-04-[address] [facility] Test 00:00:00 (12+) [code = DEPRESSION Med ical Center SCREENING (12+)] Future Scheduled 2013 Lipid panel (procedure) [facility] Test 00:00:00 [code = 10928933] Medical Ce nter Future Scheduled 2012 DTAP/TDAP/TD VACCINES ([address] [facility] Test 00:00:00 - Tdap) [code = Medical Cent er DTAP/TDAP/TD VACCINES (1 - Tdap)] Future Scheduled 2011 HEPATITIS C SCREENING [facility] Test 00:00:00 [code = HEPATITIS C Medical Center SCREENING] Future Scheduled [address] [facility] Test 00:00:00 virus screening Medical Cent er (procedure) [code = 173580121] Future Scheduled [address] [facility] Test 00:00:00 Counseling and Screening Med ical Center (12+) [code = Tobacco Cessation Counseling and Screening (12+)] Future Scheduled 1993 COVID-19 VACCINE (#1) [facility] Test 00:00:00 [code = COVID-19 VACCINE Med ical Center (#1)] Encounters Start End Encounter Admission Attending Care Care Encounter Source Date/Time Date/Time Type Type Clinicians Facility Department ID 2020-11-28 2020-11-28 Orders Doctor DORAN [id number] Univers 00:00:00 00:00:00 Only Unassigned, PAWEL [id number] ity of [place] [facility] 4.2.7.2.686 Eric as [phone] [facility] [address] Branch 2020-11-20 2020-11-20 Emergency ER [facility] Emergency [id number] SLE 10:22:00 10:22:00 2020-11-15 2020-11-15 Emergency ER [facility] Emergency [id number] SLEH 20:42:00 20:42:00 2019-05-28 2019-05-28 Emergency Marielena Giordano [facility] [id number] 16:54:20 18:00:00 [place] [id number] [place] [id number] [place] [id number] 2019-05-28 2019-05-28 Orders Doctor ESPINOZA [id number] 00:00:00 00:00:00 Only Unassigned, PAWEL [id number] [place] [facility] 4.2.7.2.686 [id number] Results Test Description Test Time Test Comments Results Result Comments Source HIV 1/2 4TH GEN, RFLX CONF 2021-06-05 04:36:58 Test Item Value Reference Range Interpretation Comme nts HIV 1/2 4TH GEN, RFLX NON-REACTIVE NON-REACTIVE UNLES S OTHERWISE INDICATED, ALL CONF (test code = 3514) TEST ING PERFORMED ATCLINICAL PATHOLOGY No Chains [facility] [address] [place] [address] LABORATORY DIRE CTOR: MÓNICA HERNANDEZ M.D. CLIA NUMBER [id number] [place]. [id number] COMPREHENSIVE METABOLIC [id number] 19:14:19 Test Item Value Reference Range Interpretation Comments GLUCOSE (test code = 95 MG/DL 70-99 2216) BUN (test code = 14 MG/DL 6-20 2207) CREATININE (test 1.75 MG/DL 0.80-1.40 H code = 2214) eGFR (2020 CKD-EPI) 54 ML/MIN/1.73 >60 L (test code = 73490) CALC BUN/CREAT (test 8 RATIO 6-28 code = 2235) SODIUM (test code = 138 MEQ/L 700-763 3612) POTASSIUM (test code 4.7 MEQ/L 3.5-5.4 HEMOLY TIC = 2228) INTERFERENCE DETECTED; RESUL TS MAY [...] 132 U/L 40-115 H (test code = 2204) AST (test code = 51 U/L 9-50 H 2217) ALT (test code = 25 U/L 5-50 2218) LIPID [id number] 19:14:19 Test Item Value Reference Range Interpretation [...] MOREINFORMATION , SEE CLIENT ANNOUNCE MENT AT [email or web address] RISK RATIO LDL/HDL 2.00 RATIO <3.55 (test code = 2238) TSH, THIRD [id number] 02:16:38 Test Item Value Reference Range Interpretation Comments TSH, THIRD GENERATION (test code 0.566 UIU/ML 0.400-4.100 = 2821) HEMOGLOBIN [id number] 03:15:34 Test Item Value Reference Range Interpretation Comments HEMOGLOBIN A1c (test code = 54988) 5.2 % 4.2-5.6 CBC W/AUTO DIFF WITH [id number] 02:45:00 Test Item Value Reference Range Interpretation [...] = 1036) NUCLEATED RBCS (test 0.0 /100 WBC'S See_Comment [Aut omated code = 1065) message] The sy stem which generated this [...] RBCS 0.00 K/UL 0.00-0.11 (test code = 37900) SARS-CoV-2 (COVID-19), RT-PCR/[id number] 15:37:11 Test Item Value Reference Interpretation Comments Range SARS-CoV-2 NEGATIVE SEE NOTE SARS-CoV-2 RNA NOT INTERPRETATION DETECTEDNegat mark (test code = 57061) results do not preclude SARS-CoV-2 infe ction [...] code = [place]IF[place]: [place] [address]) Stephen Shae [place] l-Time RT-PCR. The exp ected result or refer ence range is NEGATI VE (Not Detected). For more information reg arding COVID-19 testin g to include clinicalinforma tion, methodology det ail, intended use, F DA authorization andrecommended fact sheets for alireza ents or healthcare prov iders, see NewTest Announcement: SARS-CoV-2 (COV ID-19) by NAAT at URL below (note,fact shee ts are provided by met hod given in report:https:// [email or web address]/clinici [email or web address] nt-[email or web address] ns/ Alternatively, see downloadable PD F fact sheet at:https://www. [employer]/COVID-19-RT -PCR UNLESS OTHERWIS E INDICATED, ALL TESTING PERFORMED ATCLI NICAL PATHOLOGY LABOR [employer] [address] [place] [address] 47 4 LABORATORY DIRE CTOR: MÓNICA PLUMMER M.D. CLIA NUMBER [id number] [place] [id number] ANG, VISCERAL [id number] 10:03:00Reason for exam:->bleeding mesenteric arteryCHI CENTRAL [facility]: [facility] : 1995 Sex: MFINAL REPORT PROCEDURE: Mesenteric and left renal angiography Procedural PersonnelAttending physician(s): Genesis Tate physician(s): NoneResident physician(s): NoneAdvanced practice provider(s): None Pre-procedure diagnosis: Hemoperitoneum, spontaneous intraabdominal hemorrhagePost-procedure diagnosis: SameIndication: Spontaneous intraabdominal arterial hemorrhageAdditional clini fiorella history: Spontaneous intraabdominal hemorrhage with positive brisk arterial contrast extravasation on outside hospital CTA. Complications: No immediate complications. IMPRESSION: Angiography of theceliac artery, splenic artery, hepatic artery, SMA, left [...] prior to the procedure.Preparation: The site was preparedand draped using maximal sterile barrier technique including cutaneous antisepsis. Anesthesia/sedationLevel of anesthesia/sedation: No sedation (IV fentanyl for [...] technique: MynxHemostasis achieved from closure technique: YesDuration ofmanual compression (minutes): 5 ContrastContrast agent: Isovue 300Contrast volume (mL): 150 Radiation DoseFluoroscopy time (minutes): 26.8 Reference air kerma (mGy): 927 Additional DetailsAdditional description of procedure: NoneEquipment details: NoneSpecimens removed: NoneEstimated blood loss (mL): L ess than 10Standardized report: SIR_AngioMesenteric_v3 AttestationSigner name: Jammie Aguilar attest that I was present for the entire procedure. I reviewed the stored images and agree with the report as written. Signed: Jammie Mcknight MDReport Verified Date/Time: 11/22/2020 10:03:30 HIGH SENSITIVITY TROPONIN [id number] 19:01:00 Test Item Value Reference Range Interpretation Comments HIGH SENSITIVITY 6 pg/ml See_Comment [Automated message] TROPONIN I (test code = The system which 0640660) generated this result transmitted ref erence range: <=35. Th e reference range was not used to interpr et this result as normal/abnormal . Fiberglass Quality Technician ID - DBThe WASTE MANAGEMENT SPECIALIST STAT High Sensitivity Troponin-I results should be used in conjunctionwith other diagnostic information such as ECG, clinical observations and information, and patient symptoms to aid in the diagnosis of [place].CT, CTA, [id number] 14:24:00Unlisted Reason for Exam - Click Yes and Enter Reason Below->No [facility] : 1995 Sex: MFINAL REPORT CT of the Chest dated 11/20/2020 CLINICAL INFORMATION: Chest pain, normal EKG Comment: Axial images of the chest were obtained from thoracic inlet to the upper abdomen with andwithout intravenous contrast. This exam was performed according to our departmental dose-optimization program, which includes automated exposure control, adjustment of the mA and/or kV according to patient size and/or use of interactive reconstruction technique. Heart is normal in size. Thoracic aortais normal in caliber. No thoracic aortic aneurysm or dissection is seen. Great vessels are unremarkable. No adenopathy in the mediastinum or perihilar region. Trachea and mainstem bronchi are patent. Chaparro bsegmental atelectasis is seen in the right mid and both lower lobes. Lungs are clear. No nodular, mass lesion or airspace disease is noted. No interstitial disease or bronchiectasis is present. No pleural effusion or pleural based mass is seen. Visualized upper abdomen demonstrates no focal lesion. Impression: Unremarkable CT examination of the chest. Signed: Dimple aLngford Verified Date/Time: 11/20/2020 14:24:52 Reading Location: [facility] B1 C013Y CT Body Reading Room D-DIMER 2020-11-20 12:11:00 Test Item Value Reference Range Interpretation [...] < pg/mL 0-100 (test code = 700) Fiberglass Quality Technician ID Maggi SINGH FHIGH SENSITIVITY TROPONIN [id number] 11:53:00 Test Item Value Reference Range Interpretation Comments HIGH SENSITIVITY 6 pg/ml See_Comment [Automated message] TROPONIN I (test code = The system which [id number]) generated this result transmitted ref erence range: <=35. Th e reference range was not used to interpr et this result as normal/abnormal . Fiberglass Quality Technician ID Maggi SINGH FThe WASTE MANAGEMENT SPECIALIST STAT High Sensitivity Troponin-I results should be used in conjunction with other diagnostic information such as ECG, clinical observations and information, and patient symptoms to aid in the diagnosis of [place].[id number] 11:48:00 Test Item Value Reference Range Interpretation Comments MAGNESIUM (BEAKER) (test code = 1.9 mg/dL 1.6-2.6 627) Fiberglass Quality Technician ID Maggi SINGH FCOMPREHENSIVE METABOLIC [id number] 11:48:00 Test Item Value Reference Range Interpretation [...] S NOT APPLICABLE FOR DIALYSIS PATIEN TS. Fiberglass Quality Technician ID - FRANCISCO [id number] 11:48:00 Test Item Value Reference Range Interpretation Comments PHOSPHORUS (BEAKER) (test code = 2.8 mg/dL 2.3-4.7 604) Fiberglass Quality Technician ID - FRANCISCO FPROTHROMBIN [id number] 11:37:00 Test Item Value Reference Range Interpretation Comments PROTIME (BEAKER) 13.1 seconds 11.9-14.2 (test code = 759) INR (BEAKER) (test 1.01 See_Comment [Automat ed message] code = 370) The system [employer] generated this result transmitted ref erence range: <=5.90. The reference range was not used to int erpret this result as normal/abnormal . RECOMMENDED COUMADIN/WARFARIN INR THERAPY RANGESSTANDARD DOSE: 2.0 - 3.0 Includes: PROPHYLAXIS for venous thrombosis, systemic embolization; TREATMENT for venous thrombosis and/or pulmonary embolus.HIGH RISK: Target INR is 2.5-3.5 for patients with mechanical heart valves.CBC W/PLT COUNT & AUTO [id number] 11:34:00 Test Item Value Reference Range Interpretation [...] (BEAKER) (test code = 2801) BASIC METABOLIC [id number] 04:58:00 Test Item Value Reference Range Interpretation [...] S NOT APPLICABLE FOR DIALYSIS PATIEN TS. Fiberglass Quality Technician ID - JORDAN [id number] 04:58:00 Test Item Value Reference Range Interpretation Comments MAGNESIUM (BEAKER) (test code = 2.2 mg/dL 1.6-2.6 627) Fiberglass Quality Technician ID - JORDAN [id number] 04:58:00 Test Item Value Reference Range Interpretation Comments PHOSPHORUS (BEAKER) (test code = 2.9 mg/dL 2.3-4.7 604) Fiberglass Quality Technician ID - JORDAN MCBC W/PLT COUNT & AUTO [id number] 04:45:00 Test Item Value Reference Range Interpretation [...] code = 2801) RAD, ABDOMEN/KUB, 1 VIEW [id number] 18:55:00Reason for exam:->nausea [facility] : 1995 Sex: MFINAL REPORT TECHNIQUE: Single View of the Abdomen. INDICATION: nausea. COMPARISON: [facility] 11/15/2020. FINDINGS/IMPRESSION: The bowel gas pattern is normal. No abnormal calcifications. No acute bone abnormality. Small right pleural effusion with right basilar atelectasis. Signed: Mark Crump MDRepbarton county memorial hospital Verified Date/Time: 11/17/2020 18:55:53 Reading Location: [address] Consult Reading Room BASI METABOLIC [id number] 11:39:00 Test Item Value Reference Range Interpretation [...] S NOT APPLICABLE FOR DIALYSIS PATIEN TS. Fiberglass Quality Technician ID - RADHA MCBC W/PLT COUNT & AUTO [id number] 03:36:00 Test Item Value Reference Range Interpretation [...] 0-1 PERCENT (BEAKER) (test code = 2801) HEPATIC FUNCTION [id number] 03:17:00 Test Item Value Reference Range Interpretation [...] Specimen slightly (test code = 347) hemolyzed Fiberglass Quality Technician ID - [id number] 03:17:00 Test Item Value Reference Range Interpretation Comments MAGNESIUM (BEAKER) 1.6 mg/dL 1.6-2.6 Specimen slightly (test code = 627) hemolyzed Fiberglass Quality Technician ID - [id number] 03:17:00 Test Item Value Reference Range Interpretation Comments PHOSPHORUS (BEAKER) 2.8 mg/dL 2.3-4.7 Specimen slightly (test code = 604) hemolyzed Fiberglass Quality Technician ID - BSBASIC METABOLIC [id number] 03:17:00 Test Item Value Reference Range Interpretation [...] S NOT APPLICABLE FOR DIALYSIS PATIEN TS. Fiberglass Quality Technician ID - BSBASIC METABOLIC [id number] 18:29:00 Test Item Value Reference Range Interpretation [...] S NOT APPLICABLE FOR DIALYSIS PATIEN TS. Fiberglass Quality Technician ID - BSLACTIC ACID, [id number] 18:21:00 Test Item Value Reference Range Interpretation Comments LACTATE BLOOD VENOUS (2) (BEAKER) 2.18 mmol/L 0.50-2.20 (test code = 2872) Fiberglass Quality Technician ID - BSCBC W/PLT COUNT & AUTO [id number] 18:14:00 Test Item Value Reference Range Interpretation [...] PERCENT (BEAKER) (test code = 2801) POCT-GLUCOSE [id number] 16:32:00 Test Item Value Reference Range Interpretation Comments POC-GLUCOSE METER 113 mg/dL 70-110 H : TESTED A T [facility] [address] (BEAKER) (test code = [place], 1538) [address]: Fiberglass Quality Technician/Techni burt ID = [id number] for [employer] (contract), Apr [id number] 14:44:00 Test Item Value Reference Range Interpretation Comments FERRITIN (BEAKER) (test code = 249.19 ng/mL 5.00-275.00 361) Fiberglass Quality Technician ID - JORDAN MCOMPLEMENT COMPONENT [id number] 14:01:00 Test Item Value Reference Range Interpretation Comments C4 COMPLEMENT (BEAKER) (test code = 26 mg/dL 15-57 394) Fiberglass Quality Technician ID - JORDAN MCOMPLEMENT COMPONENT [id number] 14:01:00 Test Item Value Reference Range Interpretation Comments C3 COMPLEMENT (BEAKER) (test code = 92 mg/dL 82-193 393) Fiberglass Quality Technician ID - JORDAN RACHEL, TIBC, % SAT. (WITHOUT FERRITIN)2020-11-16 14:01:00 Test Item Value Reference Range Interpretation Comments IRON (BEAKER) (test code = 547) 123.0 ug/dL 40.0-160.0 TOTAL IRON BINDING CAPACITY 221 ug/dL 250-450 L (BEAKER) (test code = 769) IRON % SATURATION (2) (BEAKER) 56 % 20-55 H (test code = 2590) Fiberglass Quality Technician ID - JORDAN MBASIC METABOLIC [id number] 14:00:00 Test Item Value Reference Range Interpretation [...] S NOT APPLICABLE FOR DIALYSIS PATIEN TS. Fiberglass Quality Technician ID - JORDAN MLACTIC ACID, [id number] 13:56:00 Test Item Value Reference Range Interpretation Comments LACTATE BLOOD VENOUS (2) (BEAKER) 2.29 mmol/L 0.50-2.20 H (test code = 2872) Fiberglass Quality Technician ID - JORDAN MCBC W/PLT COUNT & AUTO [id number] 13:34:00 Test Item Value Reference Range Interpretation [...] PERCENT (BEAKER) (test code = 2801) HEMOGLOBIN [id number] 12:16:00 Test Item Value Reference Range Interpretation Comments HEMOGLOBIN A1C (BEAKER) (test code = 5.2 % 4.3-6.1 368) U/S, RENAL, [id number] 12:07:00Reason for exam:->DANIEL eval hydronephrosisPLACENTIA-LINDA [facility] : 1995 Sex: MFINAL REPORT TECHNIQUE: Grayscale ultrasound of the kidneys and bladder. INDICATION: DANIEL eval hydronephrosis. COMPARISON: CT from 11/15/2020. FINDINGS: RIGHT KIDNEY: The right kidney measures 8.1 x 2.9 x 4.6 cm with a cortical thickness of 0.7 cm. No solid mass lesions. No hydronephrosis. Renal artery and vein are patent. LEFT KIDNEY: The left kidney measures 10.4 x 5.1 x 5.2 cm with a cortical thickness of 1.7 cm. No solid mass lesions. No hydronephrosis. Renal artery and vein are patent. A left lower pole anechoic renal lesion with posterior acoustic enhancement measures 1.8 cm and isconsistent with a cyst. A left interpolar anechoic renal lesion with posterior acoustic enhancement m easures 1.2 cm and is consistent with a simple renal cyst. No routine follow-up imaging is recommended for this finding. BLADDER: Not definitely visualized. The area measured as the bladder is likely hemorrhage layering in the peritoneum. Small volume ascites. IMPRESSION: 1.The small measurement of the right kidney may be due to technique since the kidney was normal size on the prior CT. No hydronephrosis 2.Small volume ascites. There is some echogenic material which is most consistent with blood. Signed: Mark Crump MDReport Verified Date/Time: 11/16/2020 12:07:09 CREATININE, RANDOM [id number] 11:39:00 Test Item Value Reference Range Interpretation Comments CREATININE URINE (BEAKER) (test 87.6 mg/dL code = 375) Reference Range: No NormalsOperator ID - JORDAN MSODIUM, RANDOM [id number] 11:39:00 Test Item Value Reference Range Interpretation Comments SODIUM URINE (BEAKER) (test code = 25 meq/L 243) Reference Range: No NormalsOperator ID - JORDAN MPOCT-GLUCOSE [id number] 11:27:00 Test Item Value Reference Range Interpretation Comments POC-GLUCOSE METER 154 mg/dL 70-110 H : TESTED A T [facility] 6720 (BEAKER) (test code = [place], [address]) [address]: Fiberglass Quality Technician/Techni burt ID = [id number] for [employer] latishaforrest (contract)Boo URINALYSIS W/ [id number] 11:24:00 Test Item Value Reference Range Interpretation [...] = 1521) SOURCE(BEAKER) (test code = 2795) Fiberglass Quality Technician ID - [auto]Fiberglass Quality Technician ID - [facility]BAT.[facility] METABOLIC [id number] 09:21:00 Test Item Value Reference Range Interpretation [...] S NOT APPLICABLE FOR DIALYSIS PATIEN TS. Fiberglass Quality Technician ID - JORDAN MCREATINE KINASE (CK)2020-11-16 08:40:00 Test Item Value Reference Range Interpretation Comments CREATINE KINASE TOTAL (BEAKER) (test 83 U/L 29-200 code = 380) Fiberglass Quality Technician ID - JORDAN MCBC W/PLT COUNT & AUTO [id number] 07:31:00 Test Item Value Reference Range Interpretation [...] K/ L 0.01-0.08 (test code = 417) [id number] 04:39:00 Test Item Value Reference Range Interpretation Comments MAGNESIUM (BEAKER) 1.8 mg/dL 1.6-2.6 Specimen slightly (test code = 627) hemolyzed Fiberglass Quality Technician ID - JODRAN [id number] 04:39:00 Test Item Value Reference Range Interpretation Comments PHOSPHORUS (BEAKER) 4.2 mg/dL 2.3-4.7 Specimen slightly (test code = 604) hemolyzed Fiberglass Quality Technician ID - JORDAN MBASIC METABOLIC [id number] 04:39:00 Test Item Value Reference Range Interpretation [...] S NOT APPLICABLE FOR DIALYSIS PATIEN TS. Fiberglass Quality Technician ID - JORDAN EPATIC FUNCTION [id number] 04:39:00 Test Item Value Reference Range Interpretation [...] Specimen slightly (test code = 347) hemolyzed Fiberglass Quality Technician ID - JORDAN MPROTHROMBIN [id number] 04:38:00 Test Item Value Reference Range Interpretation Comments PROTIME (BEAKER) 13.5 seconds 11.9-14.2 (test code = 759) INR (BEAKER) (test 1.05 See_Comment [Automat ed message] code = 370) The system [employer] generated this result transmitted ref erence range: <=5.90. The reference range was not used to int erpret this result as normal/abnormal . RECOMMENDED COUMADIN/WARFARIN INR THERAPY RANGESSTANDARD DOSE: 2.0 - 3.0 Includes: PROPHYLAXIS for venous thrombosis, systemic embolization; TREATMENT for venous thrombosis and/or pulmonary embolus.HIGH RISK: Target INR is 2.5-3.5 for patients with mechanical heart valves.[id number] 04:38:00 Test Item Value Reference Range Interpretation Comments FIBRINOGEN LEVEL (BEAKER) (test 349 mg/dl [id number] code = 658) [id number] 04:38:00 Test Item Value Reference Range Interpretation Comments PARTIAL THROMBOPLASTIN TIME 25.7 seconds 22.5-36.0 (BEAKER) (test code = 760) POCT-GLUCOSE [id number] 00:46:00 Test Item Value Reference Range Interpretation Comments POC-GLUCOSE METER 138 mg/dL 70-110 H : TESTED A T BSC 6720 (BEAKER) (test code = [place], 1538) [address]: Fiberglass Quality Technician/Techni burt ID = [id number] for ALVA LOWE COMPREHENSIVE METABOLIC [id number] 21:52:00 Test Item Value Reference Range Interpretation [...] S NOT APPLICABLE FOR DIALYSIS PATIEN TS. Fiberglass Quality Technician ID - [id number] 21:51:00 Test Item Value Reference Range Interpretation [...] RANGESSTANDARD DOSE: 2.0 - 3.0 Includes: PROPHYLAXIS for venous thrombosis, systemic embolization; TREATMENT for venous thrombosis and/or pulmonary embolus.HIGH RISK: Target INR is 2.5-3.5 for patients with mechanical heart valves.CBC W/PLT COUNT & AUTO [id number] 21:36:00 Test Item Value Reference Range Interpretation [...]
--- NOTE | 2022-12-31 19:08 | RAD REPORT ---
EXAM DESCRIPTION: RAD - Ankle Right 3 View - 12/31/2022 6:37 pm CLINICAL HISTORY: PAIN COMPARISON: No comparisons FINDINGS: Mild soft tissue swelling affects the right ankle. No acute fracture or dislocation.
[2022-12-31] MEDS ORDERED: IBUPROFEN 400 MG TAB ONE (19:10)
--- NOTE | 2022-12-31 19:17 | ER ---
Nurse's Notes [facility] Name: Bassam Sharma Age: 27 yrs Sex: Male : 1995 Arrival Date: 12/31/2022 Time: 17:37 Bed IW2 Private MD: Diagnosis: Sprain of ankle Presentation: 12/31 17:51 Chief complaint: Patient states: "A few hours ago, I was shoveling at work, went to [employer] jump on the shovel and my right ankle twisted". Coronavirus screen: At this time, the client does not indicate any symptoms associated with coronavirus-19. Ebola Screen: No symptoms or risks identified at this time. Initial Sepsis Screen: Does the patient meet any 2 criteria? No. Patient's initial sepsis screen is negative. Does the patient have a suspected source of infection? No. Patient's initial sepsis screen is negative. Risk Assessment: Do you want to hurt yourself or someone else? Patient reports no desire to harm self or others. Onset of symptoms was December 31, 2022. 17:51 Method Of Arrival: Wheelchair [place] 17:51 Acuity: JENNIFER 4 9 Triage Assessment: 17:53 General: Appears in no apparent distress. Behavior is calm, cooperative. Pain: mb9 Complains of pain in right foot Pain currently is 8 out of 10 on a pain scale. Quality of pain is described as throbbing, Pain began suddenly, Aggravated by increased activity, repositioning, weight bearing. Neuro: Dennis Agitation-Sedation Scale (RASS): 0 - Alert and Calm Level of Consciousness is awake, alert, obeys commands, Oriented to person, place, time, situation, Appropriate for age. Cardiovascular: Pulses are all present. Respiratory: Airway is patent Respiratory effort is even, unlabored. Musculoskeletal: Range of motion: intact in all extremities. Historical: - Allergies: 17:53 Solu-Medrol; mb9 - PMHx: 17:53 cardiomegaly; good posture syndrome; Hypertension; kidney failure; mb9 - PSHx: 17:53 1/2 of right lung removed; mb9 - Immunization history:: Adult Immunizations up to date. - Social history:: Smoking status: Patient/guardian denies using tobacco. Screenin:41 [facility] ED Fall Risk Assessment (Adult) History of falling in the last 3 months, lg3 including since admission No falls in past 3 months (0 pts). Abuse screen: Denies threats or abuse. Denies injuries from another. Nutritional screening: No deficits noted. Tuberculosis screening: No symptoms or risk factors identified. Assessment: 19:41 General: Appears in no apparent distress. comfortable, Behavior is calm, cooperative. lg3 Pain: Complains of pain in anterior aspect of right ankle Pain currently is 3 out of 10 on a pain scale. Neuro: No deficits noted. Dennis Agitation-Sedation Scale (RASS): 0 - Alert and Calm Level of Consciousness is awake, alert, obeys commands, Oriented to person, place, time, situation. Cardiovascular: No deficits noted. Denies chest pain, shortness of breath, Capillary refill < 3 seconds Clubbing of nail beds is absent JVD is absent Patient's skin is warm and dry. Respiratory: No deficits noted. Airway is patent Respiratory effort is even, unlabored, Respiratory pattern is regular, symmetrical. GI: No deficits noted. No signs and/or symptoms were reported involving the gastrointestinal system. : No deficits noted. No signs and/or symptoms were reported regarding the genitourinary system. EENT: No deficits noted. No signs and/or symptoms were reported regarding the EENT system. Derm: No deficits noted. No signs and/or symptoms reported regarding the dermatologic system. Skin is intact, is healthy with good turgor, Skin is dry, Skin is normal, Skin temperature is warm. Musculoskeletal: Circulation, motion, and sensation intact. Range of motion: intact in all extremities, Reports pain in anterior aspect of right ankle. Vital Signs: 17:51 BP 175 / 100; Pulse 62; Resp 18; Temp 98.5; Pulse Ox 100% on R/A; Weight 68.04 kg; mb9 Height 5 ft. 7 in. ; Pain 8/10; 19:41 BP 151 / 89; Pulse 68; Resp 17 S; Pulse Ox 100% on R/A; lg3 17:51 Body Mass Index 23.49 (68.04 kg, 170.18 cm) mb9 17:51 Pain Scale: Adult mb9 ED Course: 17:41 Patient arrived in ED. im 17:41 [facility] kb 17:41 Ezequiel Kumar DO is Attending Physician. kb 17:53 Triage completed. mb9 17:53 Arm band placed on. mb9 18:39 Ankle Right 3 View XRAY In Process Unspecified. EDMS 19:41 Patient has correct armband on for positive identification. Family accompanied patient. lg3 19:41 No provider procedures requiring assistance completed. Patient did not have IV access lg3 during this emergency room visit. Administered Medications: 19:00 Drug: Ibuprofen PO 800 mg PO once Route: PO; mb9 Medication: 19:41 VIS not applicable for this client. lg3 Outcome: 19:16 Discharge ordered by . kb 19:41 Discharged to home via wheelchair, with crutches, with significant other, lg3 19:41 Condition: stable 19:41 Discharge instructions given to patient, Instructed on discharge instructions, follow up and referral plans. medication usage, crutch walking, Demonstrated understanding of instructions, follow-up care, medications, crutch walking, Prescriptions given X 1, 19:43 Patient left the ED. lg3 Signatures: Dispatcher [employer] EDMS Sofia Hutchins, MILKA-C CREDIT OFFICER-Geeta Simmons, RN RN lg3 Marlene Weiner RN RN mb9 Trinidad Gtz Corrections: (The following items were deleted from the chart) 17:54 17:51 Pulse 62bpm; Resp 18bpm; Pulse Ox 100% RA; Temp 98.5F; 68.04 kg; Height 5 ft. 7 mb9 in.; BMI: 23.4; Pain 8/10, Adult; mb9
--- NOTE | 2022-12-31 19:17 | EDPHYS ---
Physician Documentation [facility] Name: Bassam Sharma Age: 27 yrs Sex: Male : 1995 Arrival Date: 12/31/2022 Time: 17:37 Bed IW2 Private MD: ED Physician Ezequiel Kumar HPI: 12/31 18:49 This 27 yrs old Male presents to ER via Wheelchair with complaints of Ankle kb Injury - right. 18:49 The patient presents with decreased range of motion, pain, swelling, tenderness. The kb complaints affect the right ankle. Onset: The symptoms/episode began/occurred 3 hour(s) ago. Context: The problem was sustained outdoors, The patient is unable to bear weight. The patient is not able to ambulate. Associated signs and symptoms: Pertinent positives: swelling, Pertinent negatives: calf tenderness, fever, nausea, numbness, rash, tingling, vomiting, warmth, weakness. Modifying factors: The symptoms are alleviated by nothing, the symptoms are aggravated by weight bearing, movement. Severity of symptoms: At their worst the symptoms were moderate, in the emergency department the symptoms are unchanged. The patient has not experienced similar symptoms in the past. The patient has not recently seen a physician. Pt states he jumped on a shovel to get it into the ground, but the ground was harder than he thought and his foot twisted upward. c/o right ankle pain since then. Historical: - Allergies: 17:53 Solu-Medrol; mb9 - PMHx: 17:53 cardiomegaly; good posture syndrome; Hypertension; kidney failure; mb9 - PSHx: 17:53 1/2 of right lung removed; mb9 - Immunization history:: Adult Immunizations up to date. - Social history:: Smoking status: Patient/guardian denies using tobacco. ROS: 18:48 Constitutional: Negative for fever, chills, and weight loss, kb 18:48 MS/extremity: Positive for pain, swelling, tenderness, of the anterior aspect of right ankle, 18:48 All other systems are negative, Exam: 18:48 Constitutional: This is a well developed, well nourished patient who is awake, alert, kb and in no acute distress. Head/Face: Normocephalic, atraumatic. ENT: Moist Mucous membranes Cardiovascular: Regular rate Respiratory: Respirations even and unlabored. No increased work of breathing. Talking in full sentences Skin: Warm, dry with normal turgor. Normal color. Neuro: Awake and alert, GCS 15, oriented to person, place, time, and situation. Moves all extremities. Normal gait. 18:48 Musculoskeletal/extremity: Extremities: grossly normal except: noted in the anterior aspect of right ankle: pain, swelling, tenderness, ROM: limited active range of motion due to pain, Circulation is intact in all extremities. Sensation intact. Weight bearing: is unable to bear weight, Vital Signs: 17:51 BP 175 / 100; Pulse 62; Resp 18; Temp 98.5; Pulse Ox 100% on R/A; Weight 68.04 kg; mb9 Height 5 ft. 7 in. ; Pain 8/10; 19:41 BP 151 / 89; Pulse 68; Resp 17 S; Pulse Ox 100% on R/A; lg3 17:51 Body Mass Index 23.49 (68.04 kg, 170.18 cm) mb9 17:51 Pain Scale: Adult mb9 MDM: 17:41 Patient medically screened. kb 18:48 Differential diagnosis: fracture, sprain, dislocation. Data reviewed: vital signs, kb nurses notes. 19:16 Counseling: I had a detailed discussion with the patient and/or guardian regarding the kb historical points, exam findings, and any diagnostic results supporting the discharge/admit diagnosis, radiology results, the need for outpatient follow up, a orthopedic surgeon, to return to the emergency department if symptoms worsen or persist or if there are any questions or concerns that arise at home. 12/31 17:52 Order name: Ankle Right 3 View XRAY; Complete Time: 19:16 kb 12/31 19:17 Order name: Aircast Ankle Splint; Complete Time: 19:27 kb 12/31 19:17 Order name: Crutches; Complete Time: 19:27 kb Administered Medications: 19:00 Drug: Ibuprofen PO 800 mg PO once Route: PO; mb9 Disposition: 18:55 I was immediately available on-site in the Emergency Department for consultation in the [facility] [place] [place] the patient. Disposition Summary: 12/31/22 19:16 Discharge Ordered Notes: Location: Home Condition: Stable kb Diagnosis - Sprain of ankle kb Followup: kb - With: Emergency Department - When: As needed - Reason: Worsening of condition Followup: kb - With: Private Physician - When: 2 - 3 days - Reason: Recheck today's complaints, Continuance of care, Re-evaluation by your physician Discharge Instructions: - Discharge Summary Sheet kb - Ankle Sprain, [id number] kb - and Returning to Work lg3 Forms: - Medication Reconciliation Form kb - Thank You Letter kb - Antibiotic Education kb - Prescription Opioid Use kb - Patient Portal Instructions kb - Leadership Thank You Letter kb - Work release form lg3 Prescriptions: - Diclofenac Sodium 75 mg Oral tablet, delayed release (enteric coated) - take 1 tablet ORAL route 2 times per day As needed; 30 tablet; Refills: 0, kb Product Selection Permitted Signatures: Dispatcher [employer] EDMS Sofia Hutchins, MEDICAL TECH-C MEDICAL TECH-Ezequiel Bradford DO DO ms3 Marlene Weiner, RN RN mb9
[2022-12-31 20:45] VITALS: TEMP 98.5; O2SAT 100
[2022-12-31 20:46] VITALS: BP 151/89
== END 2022-12-31 19:43 | disposition home or self-care (01) ==
LOC: ER 17:37
DX: S93.401A Sprain of unspecified ligament of right ankle, initial encounter (principal)